=== PATIENT | female | born 1960 | race Caucasian/White ===

== ENCOUNTER 2018-09-12 12:06 | Inpatient (IN) | payer OTHER | END 2018-09-16 13:00 | disposition other institution (70) | LOC: YASAS 12:06 → Y6N 18:21 ==

== ENCOUNTER 2018-09-16 13:12 | Inpatient (IN) | payer OTHER ==
[2018-09-16] MEDS ORDERED: MAGNESIUM CITRATE 300 ML BOTTLE PO PRN (15:30)
[2018-09-16] MEDS ORDERED: LOPERAMIDE HCL 2 MG CAPSULE PO PRN (15:30)
[2018-09-16] MEDS ORDERED: MAGNESIUM HYDROX 2400MG/30ML ORAL SUSPENSION 30 ML CUP PO PRN (15:30)
[2018-09-16] MEDS ORDERED: MAG HYDROX/AL HYDROX/SIMETH 30 ML UNIT-DOSE CUP PO PRN (15:30)
[2018-09-16] MEDS ORDERED: MENTHOL/PHENOL 1 EACH UD MM PRN (15:30)
[2018-09-16] MEDS ORDERED: P-EPHED 60MG/TRIPROLIDI 2.5MG TABLET PO PRN (15:30)
--- NOTE | 2018-09-16 15:30 | HP ---
[facility] Rehab Assess/Revision - Admission History Admitted to Rehab from: [address] - Vital signs Vital Signs: Vital Signs Period Temp Pulse Resp BP Sys/Felix Pulse Ox Last 24 Hr 80 18 117/85 - Findings Detox History & Physical reviewed: Yes Concur with findings: Yes Inpatient Rehab Admission - Rehab Decision to Admit Inpatient rehab admission?: Yes - Initial Determination Are CD services needed?: Yes Free of communicable disease: Yes Not in need of hospitalization: Yes - Rehab Admission Criteria Previous failed treatment: Yes Poor recovery environment: Yes Comorbidities: Yes Lacks judgement: Yes Patient is meeting Inpatient Rehab admission criteria:: Yes
[2018-09-16] MEDS ORDERED: PNEUMOC 13-VAL CONJ-DIP CRM/PF 0.5 ML DISP.SYRIN IM ONE (15:37)
[2018-09-16] MEDS: OFLOXACIN 0.3% OPHTHALMIC SOLUTION 5 ML BOTTLE OS SCH ×2 (17:57→21:15)
[2018-09-16] MEDS: CYPROHEPTADINE HCL 4 MG TABLET PO SCH (17:58)
[2018-09-16] MEDS: THIAMINE HCL 100 MG TABLET (FP) PO SCH (21:13)
[2018-09-16] MEDS: ALBUTEROL SO4 8 GM HFA INHALER IH PRN (21:14)
[2018-09-16] MEDS: hydrOXYzine PAMOATE 50 MG CAPSULE (FP) PO PRN (21:14)
[2018-09-16] MEDS: GABAPENTIN 300 MG CAPSULE (FP) PO SCH (21:16)
[2018-09-16] MEDS ORDERED: CYPROHEPTADINE HCL 4 MG TABLET PO SCH (22:00)
[2018-09-16] MEDS ORDERED: MELATONIN 5 MG TABLETS PO PRN (22:00)
[2018-09-17] MEDS: CYPROHEPTADINE HCL 4 MG TABLET PO SCH ×3 (06:44→18:11)
[2018-09-17] MEDS: NICOTINE 21 MG/24 HOURS TOPICAL PATCH TD SCH (10:03)
[2018-09-17] MEDS: HYDROCHLOROTHIAZIDE 12.5 MG CAPSULE (FP) PO SCH (10:03)
[2018-09-17] MEDS: PRENATAL VITAMINS W/ FOLIC ACID TABLET (FP) PO SCH (10:04)
[2018-09-17] MEDS: OFLOXACIN 0.3% OPHTHALMIC SOLUTION 5 ML BOTTLE OS SCH ×4 (10:04→21:42)
[2018-09-17] MEDS: PANTOPRAZOLE 40 MG TABLET (FP) PO SCH (10:04)
[2018-09-17] MEDS: NICOTINE POLACRILEX 4 MG GUM BUC PRN (10:05)
[2018-09-17] MEDS: ALBUTEROL SO4 8 GM HFA INHALER IH PRN (11:37)
[2018-09-17] MEDS ORDERED: PT OWN MED DRAWER 7, Y5N ONE ×3 (11:37→16:49)
[2018-09-17] MEDS ORDERED: PNEUMOCOCCAL 23 VACCINE 0.5 ML VIAL IM ONE (12:00)
[2018-09-17] MEDS: CYCLOBENZAPRINE HCL 10 MG TABLET (FP) PO PRN (15:19)
--- NOTE | 2018-09-17 16:21 | CONSULT ---
[facility] Psychiatric Consult - Data Date of interview: 09/17/18 Admission source: [facility] Identifying data: Patient is a 58 year old year female, , mother of one, unemployed, domiciled, and is supported by [facility]. This is patient's first admission to rehab at [facility]. Patient admitted to for alcohol dependence. Substance Abuse History: Smoking Cessation. Smoking history: Current every day smoker. Have you smoked in the past 12 months: Yes. Aproximately how many cigarettes per day: 3. Hx Chewing Tobacco Use: No. Initiated information on smoking cessation: Yes. 'Breaking Loose' booklet given: 09/12/18. - Substances abused. Cocaine. Substance route: Inhalation. Frequency: 1-2 times per week. Amount used: 20 dollars. Age of first use: 25. Date of last use: 09/11/18. Alcohol. Substance route: Oral. Frequency: Daily. Amount used: 5 dollars of coors lite and Bacardi white. Age of first use: 23. Date of last use: 09/12/18. Marijuana/Hashish. Substance route: Smoking. Frequency: 1-2 times per week. Amount used: 2 to 3 drags. Age of first use: 18. Date of last use: 09/05/18 Medical History: asthma, Perforated nasal septum Psychiatric History: Patient denies h/o psychiatric hospitalization, outpatient care, and suicide attempt. Patient reports stable mood but is experiencing difficulty sleeping. Physical/Sexual Abuse/Trauma History: denies. Mental Status Exam - Mental Status Exam Alert and Oriented to: Time, Place, Person Cognitive Function: Good Patient Appearance: Well Groomed Mood: Euthymic Affect: Mood Congruent Patient Behavior: Cooperative Speech Pattern: Appropriate Voice Loudness: Normal Thought Process: Goal Oriented Thought Disorder: Not Present Hallucinations: Denies Suicidal Ideation: Denies Homicidal Ideation: Denies Insight/Judgement: Poor Sleep: Poorly Appetite: Fair Muscle strength/Tone: Normal Gait/Station: Normal Psychiatric Findings - Problem List ([place] 1, 2,3) (1) Alcohol dependence Current Visit: Yes Status: Acute (2) Cannabis abuse Current Visit: Yes Status: Chronic (3) Cocaine dependence, uncomplicated Current Visit: Yes Status: Chronic (4) Nicotine dependence, uncomplicated Current Visit: Yes Status: Chronic Qualifiers: Nicotine product type: cigarettes Qualified Code(s): F17.210 - Nicotine dependence, cigarettes, uncomplicated (5) Substance-induced sleep disorder Current Visit: Yes Status: Acute - Initial Treatment Plan Initial Treatment Plan: Psychoeducation provided. Rehab in progress. Will d/c Melatonin 5mg and order Melatonin 10mg HS. Benefits and side effects discussed. Verbal consent.
[2018-09-17] MEDS: hydrOXYzine PAMOATE 50 MG CAPSULE (FP) PO PRN (21:39)
[2018-09-17] MEDS: GABAPENTIN 300 MG CAPSULE (FP) PO SCH (21:39)
[2018-09-17] MEDS: THIAMINE HCL 100 MG TABLET (FP) PO SCH (21:39)
[2018-09-17] MEDS: ACETAMINOPHEN 325 MG TABLET (FP) PO PRN (21:41)
[2018-09-18] MEDS: ALBUTEROL SO4 8 GM HFA INHALER IH PRN (07:23)
[2018-09-18] MEDS: CYPROHEPTADINE HCL 4 MG TABLET PO SCH ×3 (07:23→19:08)
[2018-09-18] MEDS: PANTOPRAZOLE 40 MG TABLET (FP) PO SCH (10:05)
[2018-09-18] MEDS: NICOTINE 21 MG/24 HOURS TOPICAL PATCH TD SCH (10:05)
[2018-09-18] MEDS: PRENATAL VITAMINS W/ FOLIC ACID TABLET (FP) PO SCH (10:05)
[2018-09-18] MEDS: ALBUTEROL SO4 0.083% IH SOL 2.5 MG/3 ML VIAL.NEB. NEB PRN (10:06)
[2018-09-18] MEDS: OFLOXACIN 0.3% OPHTHALMIC SOLUTION 5 ML BOTTLE OS SCH ×4 (11:03→21:53)
[2018-09-18] MEDS: HYDROCHLOROTHIAZIDE 12.5 MG CAPSULE (FP) PO SCH (11:04)
[2018-09-18] MEDS ORDERED: BUDESONIDE/FORMETEROL FUMARATE 160/4.5 mcg INHALER IH ONE (11:10)
[2018-09-18] MEDS: BUDESONIDE/FORMETEROL FUMARATE 160/4.5 mcg INHALER IH SCH ×2 (13:51→21:54)
[2018-09-18] MEDS: TIOTROPIUM BROMIDE 2.5 MCG (SPIRIVA) RESPIMAT INHALER IH SCH (13:52)
[2018-09-18] MEDS: LIDOCAINE 5% TOPICAL PATCH TP SCH (14:26)
[2018-09-18] MEDS ORDERED: PT OWN MED DRAWER 7, Y5N ONE (16:37)
[2018-09-18] MEDS: NICOTINE POLACRILEX 4 MG GUM BUC PRN (19:09)
[2018-09-18] MEDS: guaiFENesin 200 MG/10 ML 10 ML UNIT-DOSE CUPS PO PRN (19:11)
[2018-09-18] MEDS: hydrOXYzine PAMOATE 50 MG CAPSULE (FP) PO PRN (21:50)
[2018-09-18] MEDS: CYCLOBENZAPRINE HCL 10 MG TABLET (FP) PO PRN (21:50)
[2018-09-18] MEDS: THIAMINE HCL 100 MG TABLET (FP) PO SCH (21:50)
[2018-09-18] MEDS: GABAPENTIN 300 MG CAPSULE (FP) PO SCH (21:50)
[2018-09-18] MEDS: LIDOCAINE PATCH REMOVAL MC SCH (21:51)
[2018-09-18] MEDS: ACETAMINOPHEN 325 MG TABLET (FP) PO PRN (22:54)
[2018-09-19] MEDS: CYPROHEPTADINE HCL 4 MG TABLET PO SCH ×3 (06:44→16:51)
[2018-09-19] MEDS ORDERED: PT OWN MED DRAWER 7, Y5N ONE ×3 (09:22→19:44)
[2018-09-19] MEDS: ALBUTEROL SO4 0.083% IH SOL 2.5 MG/3 ML VIAL.NEB. NEB PRN (10:15)
[2018-09-19] MEDS: OFLOXACIN 0.3% OPHTHALMIC SOLUTION 5 ML BOTTLE OS SCH ×4 (10:16→21:36)
[2018-09-19] MEDS: PANTOPRAZOLE 40 MG TABLET (FP) PO SCH (10:17)
[2018-09-19] MEDS: LIDOCAINE 5% TOPICAL PATCH TP SCH (10:17)
[2018-09-19] MEDS: HYDROCHLOROTHIAZIDE 12.5 MG CAPSULE (FP) PO SCH (10:17)
[2018-09-19] MEDS: NICOTINE 21 MG/24 HOURS TOPICAL PATCH TD SCH (10:17)
[2018-09-19] MEDS: PRENATAL VITAMINS W/ FOLIC ACID TABLET (FP) PO SCH (10:17)
[2018-09-19] MEDS: guaiFENesin 200 MG/10 ML 10 ML UNIT-DOSE CUPS PO PRN (10:19)
[2018-09-19] MEDS: TIOTROPIUM BROMIDE 2.5 MCG (SPIRIVA) RESPIMAT INHALER IH SCH (10:20)
[2018-09-19] MEDS: BUDESONIDE/FORMETEROL FUMARATE 160/4.5 mcg INHALER IH SCH ×2 (10:20→21:35)
--- NOTE | 2018-09-19 14:25 | PN ---
[facility] Progress Note Note: PATIENT SEEN FOR C/O MOUTH/TONGUE PAIN. PATIENT STATES EATING SALTY/SOUR FOODS BOTHERS HER MOUTH. STATES SHE ALSO HAS DISCOLORATION TO TONGUE X ONE YEAR AND WAS SEEN BY DENTIST ONE MONTH AGO. PATIENT STATES DENTIST DID NOT RECOMMEND ANY TREATMENT. Vital Signs (72 hours) 09/17/18 09/17/18 09/17/18 00:30 03:30 07:22 Temperature 97.9 F Pulse Rate 81 Respiratory 16 18 18 Rate Blood Pressure 104/70 09/17/18 09/17/18 09/18/18 10:04 15:19 00:30 Temperature Pulse Rate 82 81 Respiratory 17 18 18 Rate Blood Pressure 105/70 119/77 09/18/18 09/18/18 09/19/18 07:20 10:40 00:30 Temperature 97.1 F L Pulse Rate 87 85 Respiratory 16 18 Rate Blood Pressure 105/70 100/72 09/19/18 09/19/18 09/19/18 03:30 07:11 09:11 Temperature 97.7 F Pulse Rate 83 90 Respiratory 16 18 18 Rate Blood Pressure 120/80 113/72 Ambulatory Orders Albuterol Sulfate Inhaler - [Ventolin HFA Inhaler -] 2 inhaler PO Q4HWA Cyclobenzaprine HCl 10 mg PO TID PRN 09/12/18 Cyproheptadine [Periactin -] 1 tab PO TID 09/12/18 Diphenhydramine HCl 50 mg PO HS PRN 09/12/18 Gabapentin 300 mg PO HS 09/12/18 Hydrochlorothiazide 12.5 mg PO DAILY 09/12/18 Hydroxyzine HCl 25 mg PO HS 09/12/18 Ofloxacin 0.3% Ophth Soln 1 drop OS QID 09/12/18 Omeprazole 40 mg PO DAILY 09/12/18 Pantoprazole Sodium [Protonix -] 40 mg PO DAILY 09/16/18 traZODone HCL [Trazodone HCl] 50 mg PO HS 09/16/18 PE: ALERT AND ORIENTED X 3 SKIN WARM AND DRY +PERRLA EOMS INTACT BL MOUTH MUCOSA PINK AND MOIST, TONGUE MIDLINE WITH PINK/LIGHT PURPLE DISCOLORATION ON SIDE OF TONGUE, NO ULCERATIONS OR LESIONS NOTED NECK SUPPLE, NO JVD, NO LYMPHADENOPATHY CAR S1S2 RESP CTA BL A/P: ORAL DISCOMFORT ORAL GEL ORDERED PATIENT STRONGLY ADVISED TO FOLLOW UP WITH PCP FOR REFERRAL TO ENT/ORAL SPECIALIST FOR EVALUATION AND TREATMENT OF DISCOLORATION MONITOR CLINICALLY
[2018-09-19] MEDS: BENZOCAINE 20 % GEL TUBE MM PRN (16:53)
[2018-09-19] MEDS: ACETAMINOPHEN 325 MG TABLET (FP) PO PRN (18:55)
[2018-09-19] MEDS: LIDOCAINE PATCH REMOVAL MC SCH (21:34)
[2018-09-19] MEDS: THIAMINE HCL 100 MG TABLET (FP) PO SCH (21:36)
[2018-09-19] MEDS: MELATONIN 5 MG TABLETS PO PRN (21:36)
[2018-09-19] MEDS: GABAPENTIN 300 MG CAPSULE (FP) PO SCH (21:36)
[2018-09-20] MEDS: ACETAMINOPHEN 325 MG TABLET (FP) PO PRN (04:51)
[2018-09-20] MEDS ORDERED: PT OWN MED DRAWER 7, Y5N ONE ×2 (05:59→09:15)
[2018-09-20] MEDS: ALBUTEROL SO4 8 GM HFA INHALER IH PRN (06:04)
[2018-09-20] MEDS: CYPROHEPTADINE HCL 4 MG TABLET PO SCH ×3 (06:04→16:55)
[2018-09-20] MEDS: LIDOCAINE 5% TOPICAL PATCH TP SCH (10:39)
[2018-09-20] MEDS: NICOTINE 21 MG/24 HOURS TOPICAL PATCH TD SCH (10:39)
[2018-09-20] MEDS: TIOTROPIUM BROMIDE 2.5 MCG (SPIRIVA) RESPIMAT INHALER IH SCH (10:40)
[2018-09-20] MEDS: BENZOCAINE 20 % GEL TUBE MM PRN (10:40)
[2018-09-20] MEDS: BUDESONIDE/FORMETEROL FUMARATE 160/4.5 mcg INHALER IH SCH ×2 (10:40→21:40)
[2018-09-20] MEDS: PANTOPRAZOLE 40 MG TABLET (FP) PO SCH (10:41)
[2018-09-20] MEDS: PRENATAL VITAMINS W/ FOLIC ACID TABLET (FP) PO SCH (10:41)
[2018-09-20] MEDS: HYDROCHLOROTHIAZIDE 12.5 MG CAPSULE (FP) PO SCH (10:41)
[2018-09-20] MEDS: OFLOXACIN 0.3% OPHTHALMIC SOLUTION 5 ML BOTTLE OS SCH ×4 (10:41→21:39)
[2018-09-20] MEDS: CYCLOBENZAPRINE HCL 10 MG TABLET (FP) PO PRN ×2 (10:42→21:38)
[2018-09-20] MEDS: IBUPROFEN 400 MG TABLET (FP) PO PRN (13:00)
[2018-09-20] MEDS: THIAMINE HCL 100 MG TABLET (FP) PO SCH (21:38)
[2018-09-20] MEDS: GABAPENTIN 300 MG CAPSULE (FP) PO SCH (21:38)
[2018-09-20] MEDS: LIDOCAINE PATCH REMOVAL MC SCH (21:39)
[2018-09-20] MEDS: guaiFENesin 200 MG/10 ML 10 ML UNIT-DOSE CUPS PO PRN (21:41)
[2018-09-21] MEDS: IBUPROFEN 400 MG TABLET (FP) PO PRN (06:54)
[2018-09-21] MEDS: CYPROHEPTADINE HCL 4 MG TABLET PO SCH ×3 (06:54→16:55)
[2018-09-21] MEDS: NICOTINE 21 MG/24 HOURS TOPICAL PATCH TD SCH (10:13)
[2018-09-21] MEDS: OFLOXACIN 0.3% OPHTHALMIC SOLUTION 5 ML BOTTLE OS SCH ×4 (10:13→21:45)
[2018-09-21] MEDS: LIDOCAINE 5% TOPICAL PATCH TP SCH (10:13)
[2018-09-21] MEDS: HYDROCHLOROTHIAZIDE 12.5 MG CAPSULE (FP) PO SCH (10:14)
[2018-09-21] MEDS: PANTOPRAZOLE 40 MG TABLET (FP) PO SCH (10:14)
[2018-09-21] MEDS: BUDESONIDE/FORMETEROL FUMARATE 160/4.5 mcg INHALER IH SCH ×2 (10:14→21:45)
[2018-09-21] MEDS: PRENATAL VITAMINS W/ FOLIC ACID TABLET (FP) PO SCH (10:14)
[2018-09-21] MEDS: TIOTROPIUM BROMIDE 2.5 MCG (SPIRIVA) RESPIMAT INHALER IH SCH (10:15)
[2018-09-21] MEDS: CYCLOBENZAPRINE HCL 10 MG TABLET (FP) PO PRN ×2 (10:15→21:43)
[2018-09-21] MEDS: BENZOCAINE 20 % GEL TUBE MM PRN (10:16)
[2018-09-21] MEDS: ALBUTEROL SO4 0.083% IH SOL 2.5 MG/3 ML VIAL.NEB. NEB PRN (10:19)
[2018-09-21] MEDS ORDERED: PT OWN MED DRAWER 7, Y5N ONE ×2 (19:10)
[2018-09-21] MEDS: ACETAMINOPHEN 325 MG TABLET (FP) PO PRN (19:11)
[2018-09-21] MEDS: GABAPENTIN 300 MG CAPSULE (FP) PO SCH (21:43)
[2018-09-21] MEDS: THIAMINE HCL 100 MG TABLET (FP) PO SCH (21:43)
[2018-09-21] MEDS: hydrOXYzine PAMOATE 50 MG CAPSULE (FP) PO PRN (21:43)
[2018-09-21] MEDS: guaiFENesin 200 MG/10 ML 10 ML UNIT-DOSE CUPS PO PRN (21:44)
[2018-09-21] MEDS: LIDOCAINE PATCH REMOVAL MC SCH (21:46)
[2018-09-22] MEDS: CYPROHEPTADINE HCL 4 MG TABLET PO SCH ×3 (06:48→16:40)
[2018-09-22] MEDS ORDERED: PT OWN MED DRAWER 7, Y5N ONE ×4 (08:52→21:32)
[2018-09-22] MEDS: PANTOPRAZOLE 40 MG TABLET (FP) PO SCH (09:48)
[2018-09-22] MEDS: BUDESONIDE/FORMETEROL FUMARATE 160/4.5 mcg INHALER IH SCH ×2 (09:48→21:29)
[2018-09-22] MEDS: LIDOCAINE 5% TOPICAL PATCH TP SCH (09:48)
[2018-09-22] MEDS: TIOTROPIUM BROMIDE 2.5 MCG (SPIRIVA) RESPIMAT INHALER IH SCH (09:49)
[2018-09-22] MEDS: PRENATAL VITAMINS W/ FOLIC ACID TABLET (FP) PO SCH (09:50)
[2018-09-22] MEDS: NICOTINE 21 MG/24 HOURS TOPICAL PATCH TD SCH (09:50)
[2018-09-22] MEDS: HYDROCHLOROTHIAZIDE 12.5 MG CAPSULE (FP) PO SCH (09:50)
[2018-09-22] MEDS: OFLOXACIN 0.3% OPHTHALMIC SOLUTION 5 ML BOTTLE OS SCH ×4 (09:50→21:29)
[2018-09-22] MEDS: BENZOCAINE 20 % GEL TUBE MM PRN (09:52)
[2018-09-22] MEDS: CYCLOBENZAPRINE HCL 10 MG TABLET (FP) PO PRN ×2 (09:52→21:27)
[2018-09-22] MEDS ORDERED: ALBUTEROL SO4 0.083% IH SOL 2.5 MG/3 ML VIAL.NEB. NEB PRN (12:02)
[2018-09-22] MEDS: ACETAMINOPHEN 325 MG TABLET (FP) PO PRN (14:06)
[2018-09-22] MEDS: GABAPENTIN 300 MG CAPSULE (FP) PO SCH (21:27)
[2018-09-22] MEDS: THIAMINE HCL 100 MG TABLET (FP) PO SCH (21:27)
[2018-09-22] MEDS: hydrOXYzine PAMOATE 50 MG CAPSULE (FP) PO PRN (21:27)
[2018-09-22] MEDS: guaiFENesin 200 MG/10 ML 10 ML UNIT-DOSE CUPS PO PRN (21:28)
[2018-09-22] MEDS: LIDOCAINE PATCH REMOVAL MC SCH (21:55)
[2018-09-23] MEDS: ACETAMINOPHEN 325 MG TABLET (FP) PO PRN (06:50)
[2018-09-23] MEDS: CYPROHEPTADINE HCL 4 MG TABLET PO SCH ×3 (06:50→17:14)
[2018-09-23] MEDS: CYCLOBENZAPRINE HCL 10 MG TABLET (FP) PO PRN ×2 (09:46→21:27)
[2018-09-23] MEDS: PRENATAL VITAMINS W/ FOLIC ACID TABLET (FP) PO SCH (09:47)
[2018-09-23] MEDS: PANTOPRAZOLE 40 MG TABLET (FP) PO SCH (09:47)
[2018-09-23] MEDS: OFLOXACIN 0.3% OPHTHALMIC SOLUTION 5 ML BOTTLE OS SCH (09:48)
[2018-09-23] MEDS: NICOTINE 21 MG/24 HOURS TOPICAL PATCH TD SCH (09:48)
[2018-09-23] MEDS: TIOTROPIUM BROMIDE 2.5 MCG (SPIRIVA) RESPIMAT INHALER IH SCH (09:51)
[2018-09-23] MEDS: BUDESONIDE/FORMETEROL FUMARATE 160/4.5 mcg INHALER IH SCH ×2 (09:51→22:39)
[2018-09-23] MEDS: HYDROCHLOROTHIAZIDE 12.5 MG CAPSULE (FP) PO SCH (10:06)
[2018-09-23] MEDS: LIDOCAINE 5% TOPICAL PATCH TP SCH (10:07)
[2018-09-23] MEDS: BENZOCAINE 20 % GEL TUBE MM PRN (10:07)
[2018-09-23] MEDS: MELATONIN 5 MG TABLETS PO PRN (21:27)
[2018-09-23] MEDS: THIAMINE HCL 100 MG TABLET (FP) PO SCH (21:27)
[2018-09-23] MEDS: GABAPENTIN 300 MG CAPSULE (FP) PO SCH (21:27)
[2018-09-23] MEDS: guaiFENesin 200 MG/10 ML 10 ML UNIT-DOSE CUPS PO PRN (21:27)
[2018-09-23] MEDS: LIDOCAINE PATCH REMOVAL MC SCH (21:29)
[2018-09-24] MEDS: ACETAMINOPHEN 325 MG TABLET (FP) PO PRN (06:17)
[2018-09-24] MEDS: CYPROHEPTADINE HCL 4 MG TABLET PO SCH ×3 (06:17→16:40)
[2018-09-24] MEDS ORDERED: COLLOIDAL OATMEAL 1 BAR EACH TP PRN (07:58)
[2018-09-24] MEDS: HYDROCHLOROTHIAZIDE 12.5 MG CAPSULE (FP) PO SCH (10:26)
[2018-09-24] MEDS: LIDOCAINE 5% TOPICAL PATCH TP SCH (10:26)
[2018-09-24] MEDS: PRENATAL VITAMINS W/ FOLIC ACID TABLET (FP) PO SCH (10:27)
[2018-09-24] MEDS: NICOTINE 21 MG/24 HOURS TOPICAL PATCH TD SCH (10:27)
[2018-09-24] MEDS: PANTOPRAZOLE 40 MG TABLET (FP) PO SCH (10:27)
[2018-09-24] MEDS: BUDESONIDE/FORMETEROL FUMARATE 160/4.5 mcg INHALER IH SCH ×2 (10:28→21:25)
[2018-09-24] MEDS: TIOTROPIUM BROMIDE 2.5 MCG (SPIRIVA) RESPIMAT INHALER IH SCH (10:28)
[2018-09-24] MEDS: BENZOCAINE 20 % GEL TUBE MM PRN (10:29)
[2018-09-24] MEDS: CYCLOBENZAPRINE HCL 10 MG TABLET (FP) PO PRN ×2 (10:30→21:24)
[2018-09-24] MEDS ORDERED: PT OWN MED DRAWER 7, Y5N ONE (16:36)
[2018-09-24] MEDS: GABAPENTIN 300 MG CAPSULE (FP) PO SCH (21:24)
[2018-09-24] MEDS: guaiFENesin 200 MG/10 ML 10 ML UNIT-DOSE CUPS PO PRN (21:24)
[2018-09-24] MEDS: hydrOXYzine PAMOATE 50 MG CAPSULE (FP) PO PRN (21:24)
[2018-09-24] MEDS: MELATONIN 5 MG TABLETS PO PRN (21:24)
[2018-09-24] MEDS: LIDOCAINE PATCH REMOVAL MC SCH (21:26)
[2018-09-24] MEDS: THIAMINE HCL 100 MG TABLET (FP) PO SCH (21:28)
[2018-09-25] MEDS: ACETAMINOPHEN 325 MG TABLET (FP) PO PRN (06:11)
[2018-09-25] MEDS: CYPROHEPTADINE HCL 4 MG TABLET PO SCH ×3 (06:11→16:50)
[2018-09-25] MEDS: CYCLOBENZAPRINE HCL 10 MG TABLET (FP) PO PRN ×3 (06:13→21:12)
[2018-09-25] MEDS ORDERED: PT OWN MED DRAWER 7, Y5N ONE (08:48)
[2018-09-25] MEDS: LIDOCAINE 5% TOPICAL PATCH TP SCH (10:14)
[2018-09-25] MEDS: NICOTINE 21 MG/24 HOURS TOPICAL PATCH TD SCH (10:14)
[2018-09-25] MEDS: BUDESONIDE/FORMETEROL FUMARATE 160/4.5 mcg INHALER IH SCH ×2 (10:15→21:14)
[2018-09-25] MEDS: TIOTROPIUM BROMIDE 2.5 MCG (SPIRIVA) RESPIMAT INHALER IH SCH (10:15)
[2018-09-25] MEDS: PRENATAL VITAMINS W/ FOLIC ACID TABLET (FP) PO SCH (10:15)
[2018-09-25] MEDS: PANTOPRAZOLE 40 MG TABLET (FP) PO SCH (10:15)
[2018-09-25] MEDS: HYDROCHLOROTHIAZIDE 12.5 MG CAPSULE (FP) PO SCH (10:15)
[2018-09-25] MEDS: ALBUTEROL SO4 8 GM HFA INHALER IH PRN (10:16)
[2018-09-25] MEDS: IBUPROFEN 400 MG TABLET (FP) PO PRN ×2 (13:53→22:09)
[2018-09-25] MEDS: guaiFENesin 200 MG/10 ML 10 ML UNIT-DOSE CUPS PO PRN (21:12)
[2018-09-25] MEDS: THIAMINE HCL 100 MG TABLET (FP) PO SCH (21:12)
[2018-09-25] MEDS: GABAPENTIN 300 MG CAPSULE (FP) PO SCH (21:13)
[2018-09-25] MEDS: LIDOCAINE PATCH REMOVAL MC SCH (21:14)
[2018-09-25] MEDS: METHYL SALICYLATE/MENTHOL OINT 30 GM TUBE TP SCH (21:14)
[2018-09-26] MEDS: CYCLOBENZAPRINE HCL 10 MG TABLET (FP) PO PRN (06:11)
[2018-09-26] MEDS: CYPROHEPTADINE HCL 4 MG TABLET PO SCH ×3 (06:11→17:27)
[2018-09-26] MEDS: ACETAMINOPHEN 325 MG TABLET (FP) PO PRN (06:12)
[2018-09-26] MEDS ORDERED: PT OWN MED DRAWER 7, Y5N ONE ×5 (08:49→19:28)
[2018-09-26] MEDS: HYDROCHLOROTHIAZIDE 12.5 MG CAPSULE (FP) PO SCH (10:15)
[2018-09-26] MEDS: LIDOCAINE 5% TOPICAL PATCH TP SCH (10:15)
[2018-09-26] MEDS: NICOTINE 21 MG/24 HOURS TOPICAL PATCH TD SCH (10:15)
[2018-09-26] MEDS: BUDESONIDE/FORMETEROL FUMARATE 160/4.5 mcg INHALER IH SCH ×2 (10:15→21:02)
[2018-09-26] MEDS: TIOTROPIUM BROMIDE 2.5 MCG (SPIRIVA) RESPIMAT INHALER IH SCH (10:15)
[2018-09-26] MEDS: PANTOPRAZOLE 40 MG TABLET (FP) PO SCH (10:16)
[2018-09-26] MEDS: PRENATAL VITAMINS W/ FOLIC ACID TABLET (FP) PO SCH (10:16)
[2018-09-26] MEDS: IBUPROFEN 400 MG TABLET (FP) PO PRN ×2 (14:06→21:04)
[2018-09-26] MEDS: GABAPENTIN 300 MG CAPSULE (FP) PO SCH (21:02)
[2018-09-26] MEDS: THIAMINE HCL 100 MG TABLET (FP) PO SCH (21:02)
[2018-09-26] MEDS: hydrOXYzine PAMOATE 50 MG CAPSULE (FP) PO PRN (21:04)
[2018-09-26] MEDS: guaiFENesin 200 MG/10 ML 10 ML UNIT-DOSE CUPS PO PRN (21:04)
[2018-09-26] MEDS: METHYL SALICYLATE/MENTHOL OINT 30 GM TUBE TP SCH (21:05)
[2018-09-26] MEDS: LIDOCAINE PATCH REMOVAL MC SCH (22:10)
[2018-09-27] MEDS: CYCLOBENZAPRINE HCL 10 MG TABLET (FP) PO PRN ×3 (06:16→21:27)
[2018-09-27] MEDS: CYPROHEPTADINE HCL 4 MG TABLET PO SCH ×3 (06:16→16:32)
[2018-09-27] MEDS: IBUPROFEN 400 MG TABLET (FP) PO PRN (06:16)
[2018-09-27] MEDS: HYDROCHLOROTHIAZIDE 12.5 MG CAPSULE (FP) PO SCH (09:58)
[2018-09-27] MEDS: NICOTINE 21 MG/24 HOURS TOPICAL PATCH TD SCH (09:59)
[2018-09-27] MEDS: LIDOCAINE 5% TOPICAL PATCH TP SCH (09:59)
[2018-09-27] MEDS: PRENATAL VITAMINS W/ FOLIC ACID TABLET (FP) PO SCH (10:00)
[2018-09-27] MEDS: BUDESONIDE/FORMETEROL FUMARATE 160/4.5 mcg INHALER IH SCH ×2 (10:00→21:30)
[2018-09-27] MEDS: PANTOPRAZOLE 40 MG TABLET (FP) PO SCH (10:00)
[2018-09-27] MEDS: BENZOCAINE 20 % GEL TUBE MM PRN (10:02)
[2018-09-27] MEDS: TIOTROPIUM BROMIDE 2.5 MCG (SPIRIVA) RESPIMAT INHALER IH SCH (10:02)
[2018-09-27] MEDS: ACETAMINOPHEN 325 MG TABLET (FP) PO PRN ×2 (10:04→21:27)
[2018-09-27] MEDS: THIAMINE HCL 100 MG TABLET (FP) PO SCH (21:27)
[2018-09-27] MEDS: METHYL SALICYLATE/MENTHOL OINT 30 GM TUBE TP SCH (21:27)
[2018-09-27] MEDS: GABAPENTIN 300 MG CAPSULE (FP) PO SCH (21:27)
[2018-09-27] MEDS: LIDOCAINE PATCH REMOVAL MC SCH (21:27)
[2018-09-27] MEDS: guaiFENesin 200 MG/10 ML 10 ML UNIT-DOSE CUPS PO PRN (21:28)
[2018-09-27] MEDS ORDERED: PT OWN MED DRAWER 7, Y5N ONE (21:30)
[2018-09-28] MEDS: CYPROHEPTADINE HCL 4 MG TABLET PO SCH ×3 (06:27→16:32)
[2018-09-28] MEDS: CYCLOBENZAPRINE HCL 10 MG TABLET (FP) PO PRN ×2 (06:27→21:06)
[2018-09-28] MEDS: IBUPROFEN 400 MG TABLET (FP) PO PRN (06:27)
[2018-09-28] MEDS ORDERED: PT OWN MED DRAWER 7, Y5N ONE ×2 (08:35→09:53)
[2018-09-28] MEDS: HYDROCHLOROTHIAZIDE 12.5 MG CAPSULE (FP) PO SCH (09:51)
[2018-09-28] MEDS: NICOTINE 21 MG/24 HOURS TOPICAL PATCH TD SCH (09:51)
[2018-09-28] MEDS: PANTOPRAZOLE 40 MG TABLET (FP) PO SCH (09:51)
[2018-09-28] MEDS: PRENATAL VITAMINS W/ FOLIC ACID TABLET (FP) PO SCH (09:51)
[2018-09-28] MEDS: LIDOCAINE 5% TOPICAL PATCH TP SCH (09:51)
[2018-09-28] MEDS: TIOTROPIUM BROMIDE 2.5 MCG (SPIRIVA) RESPIMAT INHALER IH SCH (09:51)
[2018-09-28] MEDS: BUDESONIDE/FORMETEROL FUMARATE 160/4.5 mcg INHALER IH SCH ×2 (09:51→21:09)
[2018-09-28] MEDS: ACETAMINOPHEN 325 MG TABLET (FP) PO PRN ×2 (09:53→15:43)
[2018-09-28] MEDS: GABAPENTIN 300 MG CAPSULE (FP) PO SCH (21:06)
[2018-09-28] MEDS: MELATONIN 5 MG TABLETS PO PRN (21:06)
[2018-09-28] MEDS: guaiFENesin 200 MG/10 ML 10 ML UNIT-DOSE CUPS PO PRN (21:06)
[2018-09-28] MEDS: THIAMINE HCL 100 MG TABLET (FP) PO SCH (21:06)
[2018-09-28] MEDS: LIDOCAINE PATCH REMOVAL MC SCH (21:08)
[2018-09-28] MEDS: METHYL SALICYLATE/MENTHOL OINT 30 GM TUBE TP SCH (21:08)
[2018-09-28] MEDS: hydrOXYzine PAMOATE 50 MG CAPSULE (FP) PO PRN (21:08)
[2018-09-29] MEDS: IBUPROFEN 400 MG TABLET (FP) PO PRN (06:09)
[2018-09-29] MEDS: CYCLOBENZAPRINE HCL 10 MG TABLET (FP) PO PRN ×2 (06:09→21:20)
[2018-09-29] MEDS: CYPROHEPTADINE HCL 4 MG TABLET PO SCH ×3 (06:09→17:39)
[2018-09-29] MEDS: BUDESONIDE/FORMETEROL FUMARATE 160/4.5 mcg INHALER IH SCH ×2 (10:19→21:22)
[2018-09-29] MEDS: HYDROCHLOROTHIAZIDE 12.5 MG CAPSULE (FP) PO SCH (10:19)
[2018-09-29] MEDS: PRENATAL VITAMINS W/ FOLIC ACID TABLET (FP) PO SCH (10:19)
[2018-09-29] MEDS: PANTOPRAZOLE 40 MG TABLET (FP) PO SCH (10:19)
[2018-09-29] MEDS: NICOTINE 21 MG/24 HOURS TOPICAL PATCH TD SCH (10:20)
[2018-09-29] MEDS: TIOTROPIUM BROMIDE 2.5 MCG (SPIRIVA) RESPIMAT INHALER IH SCH (10:20)
[2018-09-29] MEDS: LIDOCAINE 5% TOPICAL PATCH TP SCH (10:20)
[2018-09-29] MEDS: BENZOCAINE 20 % GEL TUBE MM PRN (10:22)
[2018-09-29] MEDS: ACETAMINOPHEN 325 MG TABLET (FP) PO PRN ×2 (10:24→17:34)
--- NOTE | 2018-09-29 13:30 | PN ---
[facility] Progress Note Note: Patient seen for complaint of left shoulder pain x 2 days. Patient denies any recent injuries and/or falls. Patient states current treatment with Lidocaine ineffective and movement of left arm limited due to pain. Vital Signs (72 hours) 09/27/18 09/27/18 09/27/18 00:30 03:30 07:05 Temperature 97.1 F L Pulse Rate 85 Respiratory 16 16 18 Rate Blood Pressure 99/67 09/27/18 09/28/18 09/28/18 09:00 00:30 03:30 Temperature Pulse Rate 92 H Respiratory 18 16 16 Rate Blood Pressure 107/70 09/28/18 09/28/18 09/29/18 07:26 09:15 00:30 Temperature 98.4 F Pulse Rate 96 H 97 H Respiratory 18 16 16 Rate Blood Pressure 121/66 105/69 09/29/18 09/29/18 09/29/18 03:30 06:03 10:00 Temperature 97.9 F Pulse Rate 88 91 H Respiratory 18 16 Rate Blood Pressure 109/75 111/70 pe: alert and oriented x 3, thin body frame, 110 pounds skin warm and dry +perrla, eoms intact bl neck supple, no jvd ext amb ad grace, no edeme of feet/legs left shoulder painful to touch, mild swelling present, rom guarded a/p: left shoulder pain will continue current pain relief measures xray of left shoulder ordered monitor clinically
[2018-09-29] MEDS: GABAPENTIN 300 MG CAPSULE (FP) PO SCH (21:20)
[2018-09-29] MEDS: THIAMINE HCL 100 MG TABLET (FP) PO SCH (21:20)
[2018-09-29] MEDS: hydrOXYzine PAMOATE 50 MG CAPSULE (FP) PO PRN (21:20)
[2018-09-29] MEDS: guaiFENesin 200 MG/10 ML 10 ML UNIT-DOSE CUPS PO PRN (21:20)
[2018-09-29] MEDS: LIDOCAINE PATCH REMOVAL MC SCH (21:22)
[2018-09-29] MEDS: METHYL SALICYLATE/MENTHOL OINT 30 GM TUBE TP SCH (21:22)
[2018-09-30] MEDS: ACETAMINOPHEN 325 MG TABLET (FP) PO PRN (03:56)
[2018-09-30] MEDS: CYPROHEPTADINE HCL 4 MG TABLET PO SCH ×3 (06:21→16:40)
[2018-09-30] MEDS: IBUPROFEN 400 MG TABLET (FP) PO PRN (06:24)
[2018-09-30] MEDS: CYCLOBENZAPRINE HCL 10 MG TABLET (FP) PO PRN ×3 (06:24→21:21)
--- NOTE | 2018-09-30 09:02 | PN ---
S Progress Note Note: Pt here for medication review. Pt scheduled for discharge tomorrow. Says she does not need any medications and will f/u with PCP: Dr. Graham in [place]. HAs medications at home.
[2018-09-30] MEDS: HYDROCHLOROTHIAZIDE 12.5 MG CAPSULE (FP) PO SCH (09:11)
[2018-09-30] MEDS: LIDOCAINE 5% TOPICAL PATCH TP SCH (09:11)
[2018-09-30] MEDS: NICOTINE 21 MG/24 HOURS TOPICAL PATCH TD SCH (09:12)
[2018-09-30] MEDS: PRENATAL VITAMINS W/ FOLIC ACID TABLET (FP) PO SCH (09:12)
[2018-09-30] MEDS: PANTOPRAZOLE 40 MG TABLET (FP) PO SCH (09:12)
[2018-09-30] MEDS: TIOTROPIUM BROMIDE 2.5 MCG (SPIRIVA) RESPIMAT INHALER IH SCH (09:13)
[2018-09-30] MEDS: BUDESONIDE/FORMETEROL FUMARATE 160/4.5 mcg INHALER IH SCH ×2 (09:13→21:23)
[2018-09-30] MEDS ORDERED: PT OWN MED DRAWER 7, Y5N ONE ×2 (09:56→14:56)
[2018-09-30] MEDS: BENZOCAINE 20 % GEL TUBE MM PRN (14:53)
[2018-09-30] MEDS: GABAPENTIN 300 MG CAPSULE (FP) PO SCH (21:21)
[2018-09-30] MEDS: THIAMINE HCL 100 MG TABLET (FP) PO SCH (21:21)
[2018-09-30] MEDS: hydrOXYzine PAMOATE 50 MG CAPSULE (FP) PO PRN (21:21)
[2018-09-30] MEDS: guaiFENesin 200 MG/10 ML 10 ML UNIT-DOSE CUPS PO PRN (21:21)
[2018-09-30] MEDS: MELATONIN 5 MG TABLETS PO PRN (21:22)
[2018-09-30] MEDS: LIDOCAINE PATCH REMOVAL MC SCH (21:23)
[2018-09-30] MEDS: METHYL SALICYLATE/MENTHOL OINT 30 GM TUBE TP SCH (21:23)
[2018-10-01] MEDS: ACETAMINOPHEN 325 MG TABLET (FP) PO PRN (06:38)
[2018-10-01] MEDS: CYCLOBENZAPRINE HCL 10 MG TABLET (FP) PO PRN (06:39)
[2018-10-01] MEDS: CYPROHEPTADINE HCL 4 MG TABLET PO SCH ×2 (06:39→10:24)
[2018-10-01 07:34] VITALS: BP 120/82; PULSE 88; TEMP 98.2
[2018-10-01] MEDS ORDERED: PT OWN MED DRAWER 7, Y5N ONE (08:47)
[2018-10-01] MEDS: PRENATAL VITAMINS W/ FOLIC ACID TABLET (FP) PO SCH (09:31)
[2018-10-01] MEDS: HYDROCHLOROTHIAZIDE 12.5 MG CAPSULE (FP) PO SCH (09:31)
[2018-10-01] MEDS: PANTOPRAZOLE 40 MG TABLET (FP) PO SCH (09:31)
[2018-10-01] MEDS: NICOTINE 21 MG/24 HOURS TOPICAL PATCH TD SCH (09:32)
[2018-10-01] MEDS: BUDESONIDE/FORMETEROL FUMARATE 160/4.5 mcg INHALER IH SCH (09:33)
[2018-10-01] MEDS: TIOTROPIUM BROMIDE 2.5 MCG (SPIRIVA) RESPIMAT INHALER IH SCH (09:33)
[2018-10-01] MEDS: LIDOCAINE 5% TOPICAL PATCH TP SCH (09:34)
[2018-10-01] MEDS: BENZOCAINE 20 % GEL TUBE MM PRN (09:34)
== END 2018-10-01 10:42 | disposition home or self-care (01) | DRG 772 ==
LOC: YASAS 13:12 → Y3E 13:13
PROVIDERS: ADMIT Neuromusculoskeletal Medicine & OMM; ATTEND Neuromusculoskeletal Medicine & OMM
PROC: HZ42ZZZ Group Counseling for Substance Abuse Treatment, Cognitive-Behavioral (ICD-10-PCS; principal; 2018-09-16)
DX: F10.20 Alcohol dependence, uncomplicated (principal); F14.20 Cocaine dependence, uncomplicated; F12.20 Cannabis dependence, uncomplicated; F17.210 Nicotine dependence, cigarettes, uncomplicated; F19.282 Other psychoactive substance dependence with psychoactive substance-induced sleep disorder; M25.512 Pain in left shoulder; K13.79 Other lesions of oral mucosa
CPT/HCPCS: 73030-TC-LT-FY; 90732; 94640; G0009

== ENCOUNTER 2019-10-20 14:44 | Inpatient (IN) | payer OTHER ==
--- NOTE | 2019-10-20 15:15 | BHS.RME ---
Substance Use & Tx History - Substance Use History Alcohol Substance amount: one pint Rum, 6 pack x 12 ounces Frequency of use: Daily Substance route: Oral Date of Last Use: 10/20/19 Cocaine- Powder Substance amount: $40 Frequency of use: Less than 3 times per week Substance route: Inhalation (ex: sniffing or snorting) Date of Last Use: 10/19/19 Marijuana/Hashish Substance amount: few drags Frequency of use: Less than 3 times per week Substance route: Smoking Date of Last Use: 10/19/19 - Last Treatment Date of last treatment: 09/16 to 10/01 Detox and rehab Physical/Psych/Mental Status - Behavior General Behavior: Increased activity (restlessness, agitation) Eye Contact: Normal - Cooperativeness Cooperativeness: Cooperative - Thinking Thought Processes: Tight Thought content: Future oriented - Physical Health Problems Is patient presently having any pain?: Yes (right lateral wrist) Does patient presently have any injuries (include location): No Does patient currently have a fever: No CIWA Nausea/Vomitin-Mild Nausea/No Vomiting Muscle Tremors: 3 Anxiety: 4-Mod. Anxious/Guarded Agitation: 0-Normal Activity Paroxysmal Sweats: No Perspiration Orientation: 0-Oriented Tacttile Disturbances: 0-None Auditory Disturbances: 0-None Visual Disturbances: 0-None Headache: 0-None Present CIWA-Ar Total Score: 8
[2019-10-20 16:04] VITALS: BMI 15.6
--- NOTE | 2019-10-20 17:00 | HP ---
CIWA Score Nausea/Vomitin Muscle Tremors: 4-Moderate,w/Arms Extend Anxiety: 4-Mod. Anxious/Guarded Agitation: 1-Slight > Activity Paroxysmal Sweats: 2 Orientation: 0-Oriented Tacttile Disturbances: 0-None Auditory Disturbances: 0-None Visual Disturbances: 0-None Headache: 0-None Present CIWA-Ar Total Score: 13 - Admission Criteria OASAS Guidelines: Admission for Medically Managed Detox: Requires at least one of the followin. CIWA greater than 12 2. Seizures within the past 24 hours 3. Delirium tremens within the past 24 hours 4. Hallucinations within the past 24 hours 5. Acute intervention needed for co occurring medical disorder 6. Acute intervention needed for co occurring psychiatric disorder 7. Severe withdrawal that cannot be handled at a lower level of care (continued vomiting, continued diarrhea, abnormal vital signs) requiring intravenous medication and/or fluids 8. Admitting History and Physical - Past Medical History ...: No - Smoking History Smoking history: Current every day smoker Have you smoked in the past 12 months: Yes Aproximately how many cigarettes per day: 20 Admission ROS [facility] Chief Complaint: Alcohol withdrawal symptoms Allergies/Adverse Reactions: Allergies Allergy/AdvReac Type Severity Reaction Status Date / Time No Known Allergies Allergy Verified 09/12/18 16:36 History of Present Illness: 59 years old female with a long history of alcohol dependence is seeking admission to detox. Her last admission was for the period 09/12/2018 - 10/01/2018 and she reports that she relapsed when her mother on May 27, 2019 and her best friend May 21, 2019 respectively. She also lost her mother's brother who was her support. She reports that she drinks 1 pint rum and 6 x 12oz. beer daily. She has medical history of asthma, hypertension, GERD and Hep. C., psych. history of insomnia and she denies suicidal ideation at this time. She is unemployed, lives in an apartment in the [place] and denies legal issues. 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 Exam Limitations: No Limitations - Ebola screening Have you traveled outside of the country in the last 21 days: No Have you had contact with anyone from an Ebola affected area: No Have you been sick,other than usual withdrawal symptoms: No Do you have a fever: No - Review of Systems Constitutional: Chills, Loss of Appetite, Malaise, Changes in sleep EENT: reports: Nose Congestion Respiratory: reports: No Symptoms reported Cardiac: reports: No Symptoms Reported GI: reports: Diarrhea (x 2), Poor Appetite, Poor Fluid Intake, Abdominal cramping : reports: No Symptoms Reported Musculoskeletal: reports: Back Pain, Other (left shoulder [pain) Integumentary: reports: Dryness, Flushing Neuro: reports: Tremors Endocrine: reports: No Symptoms Reported Hematology: reports: No Symptoms Reported Psychiatric: reports: Mood/Affect Appropiate, Orientated x3 Other Systems: Reviewed and Negative Patient History - Patient Medical History Hx Anemia: No Hx Asthma: Yes (Albuterol) Hx Chronic Obstructive Pulmonary Disease (COPD): No Hx Cancer: No Hx Cardiac Disorders: No Hx Congestive Heart Failure: No Hx Hypertension: Yes (HCTZ) Hx Seizures: No Hx Diabetes: No Hx Gastrointestinal Disorders: Yes ( GERD- Not on medication) Hx Liver Disease: No Hx Genitourinary Disorders: No Hx Sexually Transmitted Disorders: No Hx Renal Disease (ESRD): No Hx Thyroid Disease: No Hx Human Immunodeficiency Virus (HIV): No (Negative 2019) Hx Hepatitis C: Yes Hx Depression: No Hx Suicide Attempt: No (Denies suicidal ideation at this time) Hx Bipolar Disorder: No Hx Schizophrenia: No - Patient Surgical History Past Surgical History: Yes Hx Neurologic Surgery: No Hx Cataract Extraction: No Hx Cardiac Surgery: No Hx Lung Surgery: No Hx Breast Surgery: No Hx Breast Biopsy: No Hx Abdominal Surgery: No Hx Appendectomy: No Hx Cholecystectomy: No Hx Genitourinary Surgery: No Hx Section: No Hx Orthopedic Surgery: Yes (Left leg surgery November 2018) Hx Hysterectomy: No Anesthesia Reaction: No - PPD History Previous Implant?: Yes Documented Results: Negative w/o proof Implanted On Prior [facility] Admission?: Yes PPD to be Administered?: Yes - Reproductive History Patient is a Female of Child Bearing Age (11 -55 yrs old): Yes LMP comment: Menopausal Patient : No - Smoking Cessation Smoking history: Current every day smoker Have you smoked in the past 12 months: Yes Aproximately how many cigarettes per day: 20 Hx Chewing Tobacco Use: No Initiated information on smoking cessation: Yes 'Breaking Loose' booklet given: 10/20/19 - Substance & Tx. History Hx Alcohol Use: Yes Hx Substance Use: Yes Substance Use Type: Alcohol, Cocaine, Marijuana Hx Substance Use Treatment: Yes ([facility]) - Substances abused Alcohol Substance route: Oral Frequency: Daily Amount used: 1 pint rum and 6 x 12oz. beer Age of first use: 21 Date of last use: 10/20/19 Cocaine Substance route: Inhalation Frequency: Daily Amount used: $40 Age of first use: 27 Date of last use: 10/19/19 Marijuana/Hashish Substance route: Smoking Frequency: 1-2 times per week Amount used: 2 drags Age of first use: 17 Date of last use: 10/19/19 Admission Physical Exam [facility] - Vital Signs Vital Signs: Vital Signs - 24 hr 10/20/19 16:01 Temperature 97.6 F Pulse Rate 66 Respiratory 18 Rate Blood Pressure 129/84 - Physical General Appearance: Yes: Moderate Distress, Tremorous, Anxious HEENTM: Yes: Within Normal Limits Respiratory: Yes: Lungs Clear, Normal Breath Sounds, No Respiratory Distress Neck: Yes: Within Normal Limits Breast: Yes: Breast Exam Deferred Cardiology: Yes: Regular Rhythm, Regular Rate Abdominal: Yes: Normal Bowel Sounds, Soft Genitourinary: Yes: Within Normal Limits Back: Yes: Normal Inspection Musculoskeletal: Yes: Within Normal Limits Extremities: Yes: Tremors Neurological: Yes: Within Normal Limits Integumentary: Yes: Within Normal Limits Lymphatic: Yes: Within Normal Limits - Diagnostic (1) Hypertension Current Visit: Yes Status: Chronic Qualifiers: Hypertension type: essential hypertension Qualified Code(s): I10 - Essential (primary) hypertension (2) Hep C w/o coma, chronic Current Visit: Yes Status: Chronic (3) Alcohol dependence with uncomplicated withdrawal Current Visit: Yes Status: Acute (4) Asthma Current Visit: Yes Status: Chronic Qualifiers: Asthma severity: mild Asthma persistence: intermittent Asthma complication type: unspecified Qualified Code(s): J45.20 - Mild intermittent asthma, uncomplicated (5) Cocaine dependence, uncomplicated Current Visit: Yes Status: Chronic (6) Nicotine dependence, uncomplicated Current Visit: Yes Status: Chronic Qualifiers: Nicotine product type: cigarettes Qualified Code(s): F17.210 - Nicotine dependence, cigarettes, uncomplicated (7) GERD (gastroesophageal reflux disease) Current Visit: Yes Status: Chronic Qualifiers: Esophagitis presence: esophagitis presence not specified Qualified Code(s): K21.9 - Gastro-esophageal reflux disease without esophagitis (8) Insomnia Current Visit: Yes Status: Chronic Qualifiers: Insomnia type: unspecified Qualified Code(s): G47.00 - Insomnia, unspecified Cleared for Admission S - Detox or Rehab [facility] Level of Care: Medically Managed Detox Regimen/Protocol: Librium Claeared for Rehab Admission: No Breathalyzer - Breathalyzer Breathalyzer: 0.088 Urine Drug Screen - Test Device Lot number: [id number] Expiration date: 05/26/21 - Control Is test valid?: Yes - Results Drug screen NEGATIVE: No Urine drug screen results: THC-Marijuana, TONY-Cocaine Inpatient Rehab Admission - Rehab Decision to Admit Inpatient rehab admission?: No
[2019-10-20] MEDS ORDERED: MAGNESIUM CITRATE 300 ML BOTTLE PO PRN (17:12)
[2019-10-20] MEDS ORDERED: ACETAMINOPHEN 325 MG TABLET (FP) PO PRN (17:12)
[2019-10-20] MEDS ORDERED: MENTHOL/PHENOL 1 EACH UD MM PRN (17:12)
[2019-10-20] MEDS ORDERED: MAG HYDROX/AL HYDROX/SIMETH 30 ML UNIT-DOSE CUP PO PRN (17:12)
[2019-10-20] MEDS ORDERED: ONDANSETRON *ODT* 4 MG TABLET SL ONE (17:12)
[2019-10-20] MEDS ORDERED: MAGNESIUM HYDROX 2400MG/30ML ORAL SUSPENSION 30 ML CUP PO PRN (17:12)
[2019-10-20] MEDS ORDERED: NICOTINE POLACRILEX 2 MG GUM BUC PRN (17:12)
[2019-10-20] MEDS ORDERED: ALBUTEROL SO4 HFA INHALER IH PRN (17:14)
[2019-10-20] MEDS: chlordiazePOXIDE HCL 10 MG CAPSULE PO PRN (18:26)
[2019-10-20] MEDS: BISMUTH SUBSALICYLATE 524 MG/30 ML UD PO PRN (19:29)
[2019-10-20] MEDS: METHOCARBAMOL 500 MG TABLET PO PRN (22:32)
[2019-10-20] MEDS: chlordiazePOXIDE HCL 25 MG CAPSULE PO SCH (22:33)
[2019-10-20] MEDS: IBUPROFEN 400 MG TABLET (FP) PO PRN (22:33)
[2019-10-20] MEDS: THIAMINE HCL 100 MG TABLET (FP) PO SCH (22:35)
[2019-10-20] MEDS: MELATONIN 5 MG TABLETS PO SCH (22:35)
[2019-10-21] MEDS: chlordiazePOXIDE HCL 25 MG CAPSULE PO SCH ×3 (05:22→22:07)
--- NOTE | 2019-10-21 09:25 | EKG ---
Test Reason : Blood Pressure : / mmHG Vent. Rate : 061 BPM Atrial Rate : 061 BPM P-R Int : 140 ms QRS Dur : 076 ms QT Int : 482 ms P-R-T Axes : 077 073 073 degrees QTc Int : 485 ms NORMAL SINUS RHYTHM LEFT VENTRICULAR HYPERTROPHY PROLONGED QT ABNORMAL ECG Confirmed by MD HANS, VINCE ([id number]) on 10/21/2019 9:24:35 AM Referred By: Confirmed By:VINCE MAXWELL MD
--- NOTE | 2019-10-21 09:31 | CONSULT ---
[facility] Psychiatric Consult - Data Date of interview: 10/21/19 Admission source: Self-referred Identifying data: Ms Alvarez is a 59 years old female, mother of a 26 years old son, unemployed receiving SSI, living with son in an apartment in the [place] seeking detox treatment for alcohol, cocaine and cannabis Substance Abuse History: Reports history of alcohol, cocaine and marijuana use. Refer to addiction counselor's summary for further information Medical History: Significant for bronchial asthma, hypertension, GERD, history of treatment for hepatitis C and orthosurgery( fracture left legg in 2019, ca rpal tunnel right wrist). Smokes cigarettes 1 ppd Psychiatric History: Denies history of previous psychiatric treatment. However at present, reports feeling depressed and sleeping poor on account of multiple losses in the family. Physical/Sexual Abuse/Trauma History: Denies history of abuse as a child or DV relationship as an adult Mental Status Exam - Mental Status Exam Alert and Oriented to: Time, Place, Person Cognitive Function: Fair Patient Appearance: Well Groomed Mood: Depressed Affect: Appropriate Patient Behavior: Cooperative Speech Pattern: Clear Voice Loudness: Normal Thought Process: Intact, Goal Oriented Thought Disorder: Not Present Hallucinations: Denies Suicidal Ideation: Denies Homicidal Ideation: Denies Insight/Judgement: Poor Sleep: Poorly Appetite: Poor Muscle strength/Tone: Normal Gait/Station: Normal Psychiatric Findings - Problem List ([place] 1, 2,3) (1) Bereavement Current Visit: Yes Status: Chronic (2) Substance induced mood disorder Current Visit: Yes Status: Acute (3) Substance-induced sleep disorder Current Visit: No Status: Acute (4) Alcohol dependence with uncomplicated withdrawal Current Visit: Yes Status: Acute (5) Cocaine dependence, uncomplicated Current Visit: Yes Status: Chronic (6) Cannabis abuse Current Visit: No Status: Chronic (7) Nicotine dependence, uncomplicated Current Visit: Yes Status: Chronic Qualifiers: Nicotine product type: cigarettes Qualified Code(s): F17.210 - Nicotine dependence, cigarettes, uncomplicated (8) Asthma Current Visit: Yes Status: Chronic Qualifiers: Asthma severity: mild Asthma persistence: intermittent Asthma complication type: unspecified Qualified Code(s): J45.20 - Mild intermittent asthma, uncomplicated (9) Hypertension Current Visit: Yes Status: Chronic Qualifiers: Hypertension type: essential hypertension Qualified Code(s): I10 - Essential (primary) hypertension (10) GERD (gastroesophageal reflux disease) Current Visit: Yes Status: Chronic Qualifiers: Esophagitis presence: esophagitis presence not specified Qualified Code(s): K21.9 - Gastro-esophageal reflux disease without esophagitis (11) Hepatitis C Current Visit: Yes Status: Chronic - Initial Treatment Plan Initial Treatment Plan: 1) Continue Melatonin 5 mg po HS prn for insomnia as already ordered. 2) Continue inpatient detoxification
[2019-10-21] MEDS: HYDROCHLOROTHIAZIDE 12.5 MG CAPSULE (FP) PO SCH (10:11)
[2019-10-21] MEDS: NICOTINE 21 MG/24 HOURS TOPICAL PATCH TD SCH (10:11)
[2019-10-21] MEDS: PRENATAL VITAMINS W/ FOLIC ACID TABLET (FP) PO SCH (10:13)
[2019-10-21 11:10] LABS: HEMATOCRIT 39.3 % (32.4-45.2); HEMOGLOBIN 13.2 GM/dL (10.7-15.3); MCH 35.2 pg (25.7-33.7); MCHC 33.6 g/dl (32.0-36.0); MEAN CELL VOLUME 104.7 fl (80-96); MEAN PLT VOLUME 10.3 fl (7.5-11.1); PLATELET COUNT 174 K/MM3 (134-434); RBC 3.75 M/mm3 (3.60-5.2); RDW 15.1 % (11.6-15.6)
[2019-10-21 11:18] LABS: ALBUMIN 3.4 g/dl (3.4-5.0); BILIRUBIN,TOTAL 1.1 mg/dL (0.2-1); BLOOD UREA NITROGEN 6.8 mg/dL (7-18); CALCIUM 9.5 mg/dL (8.5-10.1); CREATININE 0.8 mg/dL (0.55-1.3); POTASSIUM 3.7 mmol/L (3.5-5.1); TOT PROT 7.6 g/dl (6.4-8.2)
--- NOTE | 2019-10-21 11:31 | PN ---
S CIWA - CIWA Score Nausea/Vomitin-No Nausea/No Vomiting Muscle Tremors: 3 Anxiety: 2 Agitation: 3 Paroxysmal Sweats: 2 Orientation: 0-Oriented Tacttile Disturbances: 0-None Auditory Disturbances: 0-None Visual Disturbances: 0-None Headache: 0-None Present CIWA-Ar Total Score: 10 BHS Progress Note (SOAP) Subjective: sweats chills shakes interrupted sleep diarrhea. I am lactose intolerant Objective: 10/21/19 11:28 Vital Signs Temperature 98.0 F 10/21/19 08:50 Pulse Rate 65 10/21/19 08:50 Respiratory Rate 19 10/21/19 08:50 Blood Pressure 134/80 10/21/19 08:50 O2 Sat by Pulse Oximetry (%) 100 10/21/19 08:50 Laboratory Tests 10/20/19 10/21/19 10/21/19 16:30 08:10 08:10 WBC 3.0 L RBC 3.75 Hgb 13.2 Hct 39.3 MCV 104.7 H MCH 35.2 H MCHC 33.6 RDW 15.1 D Plt Count 174 D MPV 10.3 D Sodium 139 Potassium 3.7 Chloride 99 Carbon Dioxide 36 H Anion Gap 5 L BUN 6.8 L Creatinine 0.8 Est GFR (CKD-EPI)AfAm 93.53 Est GFR (CKD-EPI)NonAf 80.70 Random Glucose 90 Calcium 9.5 Total Bilirubin 1.1 H AST 43 H ALT 30 Alkaline Phosphatase 125 H Total Protein 7.6 Albumin 3.4 COVID-19 ([facility]) Not detected labs noted aaox3 ambulating no acute distress Assessment: 10/21/19 11:28 withdrawals Plan: continue detox increase fluids ensure clears ordered.
--- NOTE | 2019-10-21 16:09 | EKG ---
Test Reason : Blood Pressure : / mmHG Vent. Rate : 064 BPM Atrial Rate : 064 BPM P-R Int : 132 ms QRS Dur : 082 ms QT Int : 460 ms P-R-T Axes : 079 075 075 degrees QTc Int : 474 ms NORMAL SINUS RHYTHM PROLONGED QT Prominent U waves ABNORMAL ECG Confirmed by MD HANS, VINCE ([id number]) on 10/21/2019 4:09:39 PM Referred By: Confirmed By:VINCE MAXWELL MD
[2019-10-21] MEDS: BISMUTH SUBSALICYLATE 524 MG/30 ML UD PO PRN (19:27)
[2019-10-21] MEDS: MELATONIN 5 MG TABLETS PO SCH (22:07)
[2019-10-21] MEDS: THIAMINE HCL 100 MG TABLET (FP) PO SCH (22:07)
[2019-10-22] MEDS: chlordiazePOXIDE 5 MG CAPSULE PO SCH ×3 (05:49→22:21)
[2019-10-22] MEDS: METHOCARBAMOL 500 MG TABLET PO PRN ×2 (05:50→22:21)
[2019-10-22] MEDS: IBUPROFEN 400 MG TABLET (FP) PO PRN (05:50)
[2019-10-22] MEDS: ACETAMINOPHEN 325 MG TABLET (FP) PO PRN ×2 (08:52→22:21)
[2019-10-22] MEDS: chlordiazePOXIDE HCL 10 MG CAPSULE PO PRN (09:49)
[2019-10-22] MEDS: NICOTINE 21 MG/24 HOURS TOPICAL PATCH TD SCH (09:49)
[2019-10-22] MEDS: PRENATAL VITAMINS W/ FOLIC ACID TABLET (FP) PO SCH (09:49)
[2019-10-22] MEDS: HYDROCHLOROTHIAZIDE 12.5 MG CAPSULE (FP) PO SCH (09:50)
--- NOTE | 2019-10-22 14:07 | PN ---
S CIWA - CIWA Score Nausea/Vomitin-No Nausea/No Vomiting Muscle Tremors: 3 Anxiety: 2 Agitation: 2 Paroxysmal Sweats: 2 Orientation: 0-Oriented Tacttile Disturbances: 0-None Auditory Disturbances: 0-None Visual Disturbances: 0-None Headache: 0-None Present CIWA-Ar Total Score: 9 [facility] Progress Note (SOAP) Subjective: shakes sweats agitation Objective: 10/22/19 14:07 Vital Signs Temperature 96.9 F L 10/22/19 08:46 Pulse Rate 73 10/22/19 08:46 Respiratory Rate 16 10/22/19 08:46 Blood Pressure 118/68 10/22/19 08:46 O2 Sat by Pulse Oximetry (%) 99 10/22/19 08:46 Laboratory Tests 10/20/19 10/21/19 10/21/19 16:30 08:10 08:10 WBC 3.0 L RBC 3.75 Hgb 13.2 Hct 39.3 MCV 104.7 H MCH 35.2 H MCHC 33.6 RDW 15.1 D Plt Count 174 D MPV 10.3 D Sodium Potassium Chloride Carbon Dioxide Anion Gap BUN Creatinine Est GFR (CKD-EPI)AfAm Est GFR (CKD-EPI)NonAf Random Glucose Calcium Total Bilirubin AST ALT Alkaline Phosphatase Total Protein Albumin Syphilis Serology Reactive A* RPR Titer COVID-19 ([place]) Not detected 10/21/19 10/21/19 08:10 08:10 WBC RBC Hgb Hct MCV MCH MCHC RDW Plt Count MPV Sodium 139 Potassium 3.7 Chloride 99 Carbon Dioxide 36 H Anion Gap 5 L BUN 6.8 L Creatinine 0.8 Est GFR (CKD-EPI)AfAm 93.53 Est GFR (CKD-EPI)NonAf 80.70 Random Glucose 90 Calcium 9.5 Total Bilirubin 1.1 H AST 43 H ALT 30 Alkaline Phosphatase 125 H Total Protein 7.6 Albumin 3.4 Syphilis Serology RPR Titer Reactive 1:1 H D COVID-19 ([facility]) aaox3 ambulating no acute distress 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
[2019-10-22] MEDS: MELATONIN 5 MG TABLETS PO SCH (22:21)
[2019-10-22] MEDS: THIAMINE HCL 100 MG TABLET (FP) PO SCH (22:22)
[2019-10-23] MEDS ORDERED: chlordiazePOXIDE HCL 10 MG CAPSULE PO PRN
[2019-10-23] MEDS: IBUPROFEN 400 MG TABLET (FP) PO PRN (05:34)
[2019-10-23] MEDS: chlordiazePOXIDE HCL 10 MG CAPSULE PO SCH ×3 (05:34→22:29)
[2019-10-23] MEDS: PRENATAL VITAMINS W/ FOLIC ACID TABLET (FP) PO SCH (11:31)
[2019-10-23] MEDS: NICOTINE 21 MG/24 HOURS TOPICAL PATCH TD SCH (11:31)
[2019-10-23] MEDS: HYDROCHLOROTHIAZIDE 12.5 MG CAPSULE (FP) PO SCH (11:31)
[2019-10-23] MEDS ORDERED: COLLOIDAL OATMEAL 1 BAR EACH TP ONE (12:22)
--- NOTE | 2019-10-23 12:24 | PN ---
S CIWA - CIWA Score Nausea/Vomitin-No Nausea/No Vomiting Muscle Tremors: 2 Anxiety: 1-Mildly Anxious Agitation: 1-Slight > Activity Paroxysmal Sweats: No Perspiration Orientation: 0-Oriented Tacttile Disturbances: 0-None Auditory Disturbances: 0-None Visual Disturbances: 0-None Headache: 0-None Present CIWA-Ar Total Score: 4 BHS Progress Note (SOAP) Subjective: diarrhea the soap used for showering is making my skin itch Objective: 10/23/19 12:23 Vital Signs Temperature 97.9 F 10/23/19 08:47 Pulse Rate 72 10/23/19 08:47 Respiratory Rate 19 10/23/19 08:47 Blood Pressure 106/63 10/23/19 08:47 O2 Sat by Pulse Oximetry (%) 100 10/23/19 05:20 aaox3 ambulating no acute distress Assessment: 10/23/19 12:24 withdrawals Plan: continue detox aveeno soap x one ordered d/c in am
--- NOTE | 2019-10-23 13:34 | CONSULT ---
[facility] Psychiatric Consult - Data Date of interview: 10/23/19 Mental Status Exam - Mental Status Exam Mood: Depressed (mildly), Anxious Affect: Appropriate Patient Behavior: Cooperative Speech Pattern: Clear Voice Loudness: Normal Thought Process: Intact, Goal Oriented Hallucinations: Denies Suicidal Ideation: Denies Homicidal Ideation: Denies Insight/Judgement: Poor Sleep: Poorly Appetite: Good Muscle strength/Tone: Normal Gait/Station: Normal Psychiatric Findings - Problem List ([place] 1, 2,3) (1) Bereavement Current Visit: Yes Status: Chronic (2) Substance induced mood disorder Current Visit: Yes Status: Acute (3) Substance-induced sleep disorder Current Visit: No Status: Acute (4) Alcohol dependence with uncomplicated withdrawal Current Visit: Yes Status: Acute (5) Cocaine dependence, uncomplicated Current Visit: Yes Status: Chronic (6) Cannabis abuse Current Visit: No Status: Chronic (7) Nicotine dependence, uncomplicated Current Visit: Yes Status: Chronic Qualifiers: Nicotine product type: cigarettes Qualified Code(s): F17.210 - Nicotine dependence, cigarettes, uncomplicated (8) Asthma Current Visit: Yes Status: Chronic Qualifiers: Asthma severity: mild Asthma persistence: intermittent Asthma complication type: unspecified Qualified Code(s): J45.20 - Mild intermittent asthma, uncomplicated (9) Hypertension Current Visit: Yes Status: Chronic Qualifiers: Hypertension type: essential hypertension Qualified Code(s): I10 - Essential (primary) hypertension (10) GERD (gastroesophageal reflux disease) Current Visit: Yes Status: Chronic Qualifiers: Esophagitis presence: esophagitis presence not specified Qualified Code(s): K21.9 - Gastro-esophageal reflux disease without esophagitis (11) Hepatitis C Current Visit: Yes Status: Chronic
[2019-10-23] MEDS: ACETAMINOPHEN 325 MG TABLET (FP) PO PRN (17:40)
[2019-10-23] MEDS ORDERED: QUEtiapine FUMARATE 400 MG TABLET PO SCH (22:00)
[2019-10-23] MEDS ORDERED: PRAZOSIN HCL 1 MG CAPSULE PO SCH (22:00)
[2019-10-23] MEDS: THIAMINE HCL 100 MG TABLET (FP) PO SCH (22:29)
[2019-10-23] MEDS: METHOCARBAMOL 500 MG TABLET PO PRN (22:29)
[2019-10-23] MEDS: MELATONIN 5 MG TABLETS PO SCH (22:30)
[2019-10-24] MEDS ORDERED: chlordiazePOXIDE HCL 10 MG CAPSULE PO ONE (05:00)
[2019-10-24 06:33] VITALS: PULSE 70
[2019-10-24 10:14] VITALS: BP 83/52; TEMP 97.5
[2019-10-24] MEDS: HYDROCHLOROTHIAZIDE 12.5 MG CAPSULE (FP) PO SCH (10:21)
[2019-10-24] MEDS: NICOTINE 21 MG/24 HOURS TOPICAL PATCH TD SCH (10:21)
[2019-10-24] MEDS: PRENATAL VITAMINS W/ FOLIC ACID TABLET (FP) PO SCH (10:21)
[2019-10-24] MEDS: METHOCARBAMOL 500 MG TABLET PO PRN (10:22)
--- NOTE | 2019-10-24 10:36 | DS ---
[facility] Detox Discharge Summary Admission Date: 10/20/19 Discharge Date: 10/24/19 - History Present History: Alcohol Dependence, Cannabis Dependence, Cocaine Dependence Additional Comments: Patient was seen and examined at bedside. Alert and oriented x 3, in no acute respiratory distress. Full ROM, ambulatory in the unit without any assistance. Skin warm to touch without any lesions. Detox protocol completed, patient stable for discharge today. Pertinent Past History: History of asthma, HTN, GERD, Hep C(treated), alcohol, cocaine, cannabis and nicotine use disorder. - Physical Exam Results Vital Signs: Vital Signs Temperature 97.5 F L 10/24/19 09:15 Pulse Rate 70 10/24/19 09:15 Respiratory Rate 18 10/24/19 09:15 Blood Pressure 83/52 L 10/24/19 09:15 O2 Sat by Pulse Oximetry (%) 100 10/24/19 09:15 Vital Signs 10/24/19 10/24/19 10/24/19 06:30 06:32 09:15 Temperature 96.8 F L 97.5 F L Pulse Rate 78 70 70 Respiratory 16 18 Rate Blood Pressure 83/60 L 89/55 L 83/52 L O2 Sat by Pulse 100 100 Oximetry (%) Laboratory Last Values WBC 3.0 K/mm3 (4.0-10.0) L 10/21/19 08:10 RBC 3.75 M/mm3 (3.60-5.2) 10/21/19 08:10 Hgb 13.2 GM/dL (10.7-15.3) 10/21/19 08:10 Hct 39.3 % (32.4-45.2) 10/21/19 08:10 MCV 104.7 fl (80-96) H 10/21/19 08:10 MCH 35.2 pg (25.7-33.7) H 10/21/19 08:10 MCHC 33.6 g/dl (32.0-36.0) 10/21/19 08:10 RDW 15.1 % (11.6-15.6) D 10/21/19 08:10 Plt Count 174 K/MM3 (134-434) D 10/21/19 08:10 MPV 10.3 fl (7.5-11.1) D 10/21/19 08:10 Sodium 139 mmol/L (136-145) 10/21/19 08:10 Potassium 3.7 mmol/L (3.5-5.1) 10/21/19 08:10 Chloride 99 mmol/L (98-107) 10/21/19 08:10 Carbon Dioxide 36 mmol/L (21-32) H 10/21/19 08:10 Anion Gap 5 MMOL/L (8-16) L 10/21/19 08:10 BUN 6.8 mg/dL (7-18) L 10/21/19 08:10 Creatinine 0.8 mg/dL (0.55-1.3) 10/21/19 08:10 Est GFR (CKD-EPI)AfAm 93.53 10/21/19 08:10 Est GFR (CKD-EPI)NonAf 80.70 10/21/19 08:10 Random Glucose 90 mg/dL (74-106) 10/21/19 08:10 Calcium 9.5 mg/dL (8.5-10.1) 10/21/19 08:10 Total Bilirubin 1.1 mg/dL (0.2-1) H 10/21/19 08:10 AST 43 U/L (15-37) H 10/21/19 08:10 ALT 30 U/L (13-61) 10/21/19 08:10 Alkaline Phosphatase 125 U/L (45-117) H 10/21/19 08:10 Total Protein 7.6 g/dl (6.4-8.2) 10/21/19 08:10 Albumin 3.4 g/dl (3.4-5.0) 10/21/19 08:10 Syphilis Serology Reactive (NONREACTIVE) A* 10/21/19 08:10 RPR Titer Reactive 1:1 (NONREACTIVE) H D 10/21/19 08:10 COVID-19 ([place]) Not detected (Not Detected) 10/20/19 16:30 Labs noted. Pertinent Admission Physical Exam Findings: Withdrawal symptoms. - Treatment Hospital Course: Detox Protocol Followed, Detoxed Safely, Responded well, Discharged Condition Good - Medication Discharge Medications: Ambulatory Orders Albuterol Sulfate Inhaler - [Ventolin Hfa Inhaler -] 2 inh PO Q4H PRN 10/20/19 Ammonium Lactate Lotion [Lac-Hydrin 12] 1 applic TP BID 10/20/19 Fluticasone Prop 0.05% Nasal [Flonase -] 1 spray NS DAILY 10/20/19 Hydrochlorothiazide [Hctz -] 12.5 mg PO DAILY 10/20/19 Naproxen [Naprosyn] 500 mg PO BID 10/20/19 traZODone HCL [Trazodone HCl] 50 mg PO HS 10/20/19 - Diagnosis (1) Alcohol dependence with uncomplicated withdrawal Current Visit: Yes Status: Acute (2) Asthma Current Visit: Yes Status: Chronic Qualifiers: Asthma severity: mild Asthma persistence: intermittent Asthma complication type: unspecified Qualified Code(s): J45.20 - Mild intermittent asthma, uncomplicated (3) Cocaine dependence, uncomplicated Current Visit: Yes Status: Chronic (4) GERD (gastroesophageal reflux disease) Current Visit: Yes Status: Chronic Qualifiers: Esophagitis presence: esophagitis presence not specified Qualified Code(s): K21.9 - Gastro-esophageal reflux disease without esophagitis (5) Hepatitis C Current Visit: Yes Status: Chronic (6) Nicotine dependence, uncomplicated Current Visit: Yes Status: Chronic Qualifiers: Nicotine product type: cigarettes Qualified Code(s): F17.210 - Nicotine dependence, cigarettes, uncomplicated (7) Cannabis abuse Current Visit: No Status: Chronic - AMA Did Patient Leave Against Medical Advice: No
== END 2019-10-24 12:36 | disposition other institution (70) | DRG 774 ==
LOC: YASAS 14:44 → Y6N 16:03
PROVIDERS: ADMIT Allergy & Immunology; ATTEND Allergy & Immunology
PROC: HZ2ZZZZ Detoxification Services for Substance Abuse Treatment (ICD-10-PCS; principal; 2019-10-20)
DX: F10.230 Alcohol dependence with withdrawal, uncomplicated (principal); F14.20 Cocaine dependence, uncomplicated; F12.20 Cannabis dependence, uncomplicated; F17.210 Nicotine dependence, cigarettes, uncomplicated; F19.282 Other psychoactive substance dependence with psychoactive substance-induced sleep disorder; F19.24 Other psychoactive substance dependence with psychoactive substance-induced mood disorder; I10 Essential (primary) hypertension; J45.20 Mild intermittent asthma, uncomplicated; K21.9 Gastro-esophageal reflux disease without esophagitis; G47.00 Insomnia, unspecified; B18.2 Chronic viral hepatitis C; Z63.4 Disappearance and death of family member; Z87.81 Personal history of (healed) traumatic fracture; Z98.890 Other specified postprocedural states; Z86.19 Personal history of other infectious and parasitic diseases; Z59.0 Homelessness
CPT/HCPCS: 36415; 80053; 85027; 86593; 86780; 93005; 93010; U0003

== ENCOUNTER 2019-10-24 11:51 | Inpatient (IN) | payer OTHER ==
[2019-10-24] MEDS ORDERED: P-EPHED 60MG/TRIPROLIDI 2.5MG TABLET PO PRN (13:49)
[2019-10-24] MEDS ORDERED: MAG HYDROX/AL HYDROX/SIMETH 30 ML UNIT-DOSE CUP PO PRN (13:49)
[2019-10-24] MEDS ORDERED: MAGNESIUM CITRATE 300 ML BOTTLE PO PRN (13:49)
[2019-10-24] MEDS ORDERED: MENTHOL/PHENOL 1 EACH UD MM PRN (13:49)
[2019-10-24] MEDS ORDERED: guaiFENesin 200 MG/10 ML 10 ML UNIT-DOSE CUPS PO PRN (13:49)
[2019-10-24] MEDS ORDERED: MAGNESIUM HYDROX 2400MG/30ML ORAL SUSPENSION 30 ML CUP PO PRN (13:49)
[2019-10-24] MEDS ORDERED: NICOTINE POLACRILEX 2 MG GUM BUC PRN (13:49)
--- NOTE | 2019-10-24 13:57 | HP ---
[facility] Rehab Assess/Revision - Admission History Admitted to Rehab from: [facility] Date of Admission to Rehab: 10/24/2019 - Findings Detox History & Physical reviewed: Yes Concur with findings: Yes Inpatient Rehab Admission - Rehab Decision to Admit Inpatient rehab admission?: Yes - Initial Determination Are CD services needed?: Yes Free of communicable disease: Yes Not in need of hospitalization: Yes - Rehab Admission Criteria Previous failed treatment: Yes Poor recovery environment: Yes Comorbidities: Yes Lacks judgement: Yes Patient is meeting Inpatient Rehab admission criteria:: Yes
[2019-10-24] MEDS: hydrOXYzine PAMOATE 25 MG CAPSULE (FP) PO PRN (21:54)
[2019-10-24] MEDS: IBUPROFEN 400 MG TABLET (FP) PO PRN (21:54)
[2019-10-24] MEDS: MELATONIN 5 MG TABLETS PO SCH (21:55)
[2019-10-24] MEDS: THIAMINE HCL 100 MG TABLET (FP) PO SCH (21:55)
[2019-10-25] MEDS: IBUPROFEN 400 MG TABLET (FP) PO PRN ×2 (10:03→21:29)
[2019-10-25] MEDS: NICOTINE 21 MG/24 HOURS TOPICAL PATCH TD SCH (10:04)
[2019-10-25] MEDS: HYDROCHLOROTHIAZIDE 12.5 MG CAPSULE (FP) PO SCH (10:04)
[2019-10-25] MEDS: PRENATAL VITAMINS W/ FOLIC ACID TABLET (FP) PO SCH (10:04)
[2019-10-25] MEDS: ACETAMINOPHEN 325 MG TABLET (FP) PO PRN (16:18)
[2019-10-25] MEDS: MELATONIN 5 MG TABLETS PO SCH (21:27)
[2019-10-25] MEDS: THIAMINE HCL 100 MG TABLET (FP) PO SCH (21:27)
[2019-10-25] MEDS: hydrOXYzine PAMOATE 25 MG CAPSULE (FP) PO PRN (21:29)
[2019-10-26] MEDS: HYDROCHLOROTHIAZIDE 12.5 MG CAPSULE (FP) PO SCH (10:05)
[2019-10-26] MEDS: NICOTINE 21 MG/24 HOURS TOPICAL PATCH TD SCH (10:07)
[2019-10-26] MEDS: ACETAMINOPHEN 325 MG TABLET (FP) PO PRN (10:07)
[2019-10-26] MEDS: PRENATAL VITAMINS W/ FOLIC ACID TABLET (FP) PO SCH (10:09)
[2019-10-26] MEDS: IBUPROFEN 400 MG TABLET (FP) PO PRN (15:22)
--- NOTE | 2019-10-26 15:39 | PN ---
[facility] Progress Note (SOAP) Subjective: Pt c/o Left ear discomfort. Reports was on wax ear drops and has it in her property in security. Objective: 10/26/19 15:35 Vital Signs - 24 hr 10/25/19 10/26/19 10/26/19 20:47 06:35 10:00 Temperature 96.8 F L Pulse Rate 65 70 Respiratory 16 Rate Blood Pressure 99/64 105/70 O2 Sat by Pulse 100 96 Oximetry (%) 10/26/19 14:03 Temperature Pulse Rate Respiratory Rate Blood Pressure O2 Sat by Pulse 100 Oximetry (%) Alert o x 3 nad oob ambulating with steady gait Ears:no redness or swelling, TM intact, rosalind. Small amount of cerumen in ear canal. Assessment: 10/26/19 15:37 Ear wax Plan: Debrox ear drops 5gtts to left ear bid
[2019-10-26] MEDS: hydrOXYzine PAMOATE 25 MG CAPSULE (FP) PO PRN (21:13)
[2019-10-26] MEDS: THIAMINE HCL 100 MG TABLET (FP) PO SCH (21:13)
[2019-10-26] MEDS: MELATONIN 5 MG TABLETS PO SCH (21:14)
[2019-10-26] MEDS: METHOCARBAMOL 500 MG TABLET PO PRN (21:14)
[2019-10-26] MEDS: CARBAMIDE PEROXIDE 6.5% OTIC 15 ML BOTTLE AS SCH (21:15)
[2019-10-26] MEDS ORDERED: PT OWN MED DRAWER 7, Y5N ONE (21:15)
[2019-10-27] MEDS: IBUPROFEN 400 MG TABLET (FP) PO PRN ×2 (06:19→16:30)
[2019-10-27] MEDS: CARBAMIDE PEROXIDE 6.5% OTIC 15 ML BOTTLE AS SCH ×2 (10:05→21:14)
[2019-10-27] MEDS: NICOTINE 21 MG/24 HOURS TOPICAL PATCH TD SCH (10:05)
[2019-10-27] MEDS: PRENATAL VITAMINS W/ FOLIC ACID TABLET (FP) PO SCH (10:05)
[2019-10-27] MEDS: HYDROCHLOROTHIAZIDE 12.5 MG CAPSULE (FP) PO SCH (10:06)
[2019-10-27] MEDS: ACETAMINOPHEN 325 MG TABLET (FP) PO PRN (10:08)
[2019-10-27] MEDS: METHOCARBAMOL 500 MG TABLET PO PRN ×2 (10:11→21:12)
[2019-10-27] MEDS: MELATONIN 5 MG TABLETS PO SCH (21:12)
[2019-10-27] MEDS: hydrOXYzine PAMOATE 25 MG CAPSULE (FP) PO PRN (21:12)
[2019-10-27] MEDS ORDERED: PT OWN MED DRAWER 7, Y5N ONE (21:13)
[2019-10-27] MEDS: THIAMINE HCL 100 MG TABLET (FP) PO SCH (21:14)
[2019-10-28] MEDS: IBUPROFEN 400 MG TABLET (FP) PO PRN ×3 (06:47→21:21)
[2019-10-28] MEDS ORDERED: COLLOIDAL OATMEAL 1 BAR EACH TP PRN (08:15)
[2019-10-28] MEDS ORDERED: PT OWN MED DRAWER 7, Y5N ONE (09:09)
[2019-10-28] MEDS: HYDROCHLOROTHIAZIDE 12.5 MG CAPSULE (FP) PO SCH (09:50)
[2019-10-28] MEDS: NICOTINE 21 MG/24 HOURS TOPICAL PATCH TD SCH (09:51)
[2019-10-28] MEDS: CARBAMIDE PEROXIDE 6.5% OTIC 15 ML BOTTLE AS SCH ×2 (09:51→21:20)
[2019-10-28] MEDS: PRENATAL VITAMINS W/ FOLIC ACID TABLET (FP) PO SCH (09:51)
[2019-10-28] MEDS: ACETAMINOPHEN 325 MG TABLET (FP) PO PRN (09:53)
[2019-10-28] MEDS: METHOCARBAMOL 500 MG TABLET PO PRN ×2 (14:43→21:23)
[2019-10-28] MEDS: hydrOXYzine PAMOATE 25 MG CAPSULE (FP) PO PRN (21:20)
[2019-10-28] MEDS: THIAMINE HCL 100 MG TABLET (FP) PO SCH (21:20)
[2019-10-28] MEDS: MELATONIN 5 MG TABLETS PO SCH (21:20)
[2019-10-29] MEDS: IBUPROFEN 400 MG TABLET (FP) PO PRN ×2 (06:39→21:21)
[2019-10-29] MEDS: METHOCARBAMOL 500 MG TABLET PO PRN ×2 (06:40→21:22)
[2019-10-29] MEDS ORDERED: PT OWN MED DRAWER 7, Y5N ONE (09:22)
[2019-10-29] MEDS: HYDROCHLOROTHIAZIDE 12.5 MG CAPSULE (FP) PO SCH (10:17)
[2019-10-29] MEDS: PRENATAL VITAMINS W/ FOLIC ACID TABLET (FP) PO SCH (10:17)
[2019-10-29] MEDS: NICOTINE 21 MG/24 HOURS TOPICAL PATCH TD SCH (10:17)
[2019-10-29] MEDS: CARBAMIDE PEROXIDE 6.5% OTIC 15 ML BOTTLE AS SCH ×2 (10:17→21:23)
[2019-10-29] MEDS: ACETAMINOPHEN 325 MG TABLET (FP) PO PRN (10:19)
[2019-10-29] MEDS: ALBUTEROL SO4 HFA INHALER IH PRN (11:18)
[2019-10-29] MEDS: LOPERAMIDE HCL 2 MG CAPSULE PO PRN (21:21)
[2019-10-29] MEDS: MELATONIN 5 MG TABLETS PO SCH (21:21)
[2019-10-29] MEDS: hydrOXYzine PAMOATE 25 MG CAPSULE (FP) PO PRN (21:22)
[2019-10-29] MEDS: THIAMINE HCL 100 MG TABLET (FP) PO SCH (21:23)
[2019-10-30] MEDS: LOPERAMIDE HCL 2 MG CAPSULE PO PRN (06:27)
[2019-10-30] MEDS: METHOCARBAMOL 500 MG TABLET PO PRN ×2 (06:28→21:34)
[2019-10-30] MEDS: IBUPROFEN 400 MG TABLET (FP) PO PRN (06:28)
[2019-10-30] MEDS ORDERED: PT OWN MED DRAWER 7, Y5N ONE (08:55)
[2019-10-30] MEDS: CARBAMIDE PEROXIDE 6.5% OTIC 15 ML BOTTLE AS SCH ×2 (10:01→21:33)
[2019-10-30] MEDS: HYDROCHLOROTHIAZIDE 12.5 MG CAPSULE (FP) PO SCH (10:02)
[2019-10-30] MEDS: PRENATAL VITAMINS W/ FOLIC ACID TABLET (FP) PO SCH (10:03)
[2019-10-30] MEDS: ACETAMINOPHEN 325 MG TABLET (FP) PO PRN ×2 (10:04→21:34)
[2019-10-30] MEDS: NICOTINE 21 MG/24 HOURS TOPICAL PATCH TD SCH (10:05)
[2019-10-30] MEDS: THIAMINE HCL 100 MG TABLET (FP) PO SCH (21:32)
[2019-10-30] MEDS: MELATONIN 5 MG TABLETS PO SCH (21:33)
[2019-10-30] MEDS: ALBUTEROL SO4 HFA INHALER IH PRN (23:30)
[2019-10-31] MEDS: IBUPROFEN 400 MG TABLET (FP) PO PRN ×2 (06:50→18:19)
[2019-10-31] MEDS: METHOCARBAMOL 500 MG TABLET PO PRN ×2 (06:50→21:28)
[2019-10-31] MEDS: ALBUTEROL SO4 HFA INHALER IH PRN ×2 (06:52→13:12)
[2019-10-31] MEDS: PRENATAL VITAMINS W/ FOLIC ACID TABLET (FP) PO SCH (10:33)
[2019-10-31] MEDS: HYDROCHLOROTHIAZIDE 12.5 MG CAPSULE (FP) PO SCH (10:33)
[2019-10-31] MEDS: CARBAMIDE PEROXIDE 6.5% OTIC 15 ML BOTTLE AS SCH ×2 (10:33→21:30)
[2019-10-31] MEDS: NICOTINE 21 MG/24 HOURS TOPICAL PATCH TD SCH (10:34)
[2019-10-31] MEDS ORDERED: PT OWN MED DRAWER 7, Y5N ONE ×2 (10:40→21:30)
[2019-10-31] MEDS: hydrOXYzine PAMOATE 25 MG CAPSULE (FP) PO PRN (21:28)
[2019-10-31] MEDS: THIAMINE HCL 100 MG TABLET (FP) PO SCH (21:28)
[2019-10-31] MEDS: MELATONIN 5 MG TABLETS PO SCH (21:29)
[2019-11-01] MEDS: IBUPROFEN 400 MG TABLET (FP) PO PRN ×2 (06:03→21:43)
[2019-11-01] MEDS: METHOCARBAMOL 500 MG TABLET PO PRN ×2 (06:03→21:43)
[2019-11-01] MEDS: PRENATAL VITAMINS W/ FOLIC ACID TABLET (FP) PO SCH (10:17)
[2019-11-01] MEDS: NICOTINE 21 MG/24 HOURS TOPICAL PATCH TD SCH (10:18)
[2019-11-01] MEDS: CARBAMIDE PEROXIDE 6.5% OTIC 15 ML BOTTLE AS SCH ×2 (10:18→21:45)
[2019-11-01] MEDS: HYDROCHLOROTHIAZIDE 12.5 MG CAPSULE (FP) PO SCH (10:18)
[2019-11-01] MEDS: ALBUTEROL SO4 HFA INHALER IH PRN ×2 (10:20→13:38)
[2019-11-01] MEDS ORDERED: PT OWN MED DRAWER 7, Y5N ONE (10:26)
[2019-11-01] MEDS: hydrOXYzine PAMOATE 25 MG CAPSULE (FP) PO PRN (21:43)
[2019-11-01] MEDS: MELATONIN 5 MG TABLETS PO SCH (21:44)
[2019-11-01] MEDS: THIAMINE HCL 100 MG TABLET (FP) PO SCH (21:44)
[2019-11-02] MEDS: ALBUTEROL SO4 HFA INHALER IH PRN ×2 (06:03→09:36)
[2019-11-02] MEDS: ACETAMINOPHEN 325 MG TABLET (FP) PO PRN (06:04)
[2019-11-02] MEDS: METHOCARBAMOL 500 MG TABLET PO PRN ×2 (06:04→21:48)
--- NOTE | 2019-11-02 10:11 | PN ---
S Progress Note Note: c/o discomfort to right wrist. Reports Spraining it 6 months ago while pushing on her drawers. reports she has and brought a wrist brace with her to treatment. Vital Signs - 24 hr 11/01/19 11/01/19 11/02/19 13:54 19:33 07:23 Temperature 97.8 F 97.6 F Pulse Rate 90 82 Respiratory 18 18 Rate Blood Pressure 121/72 113/79 O2 Sat by Pulse 100 100 100 Oximetry (%) Alert o x3 nad oob ambulating with steady gait Right hand:no swelling/redness; slight bony prominence-chronic.Active ROM, no difficulty. Chronic pain, right wrist D/w pt will order [employer] to apply BID and may use her fabric wrist brace as needed. Pt is agreeable to poc.
[2019-11-02] MEDS ORDERED: METHYL SALICYLATE/MENTHOL OINT 30 GM TUBE TP SCH (10:15)
[2019-11-02] MEDS: NICOTINE 21 MG/24 HOURS TOPICAL PATCH TD SCH (10:21)
[2019-11-02] MEDS: HYDROCHLOROTHIAZIDE 12.5 MG CAPSULE (FP) PO SCH (10:21)
[2019-11-02] MEDS: PRENATAL VITAMINS W/ FOLIC ACID TABLET (FP) PO SCH (10:21)
[2019-11-02] MEDS: CARBAMIDE PEROXIDE 6.5% OTIC 15 ML BOTTLE AS SCH ×2 (10:22→21:49)
[2019-11-02] MEDS: METHYL SALICYLATE/MENTHOL OINT 30 GM TUBE TP SCH ×2 (12:56→21:51)
[2019-11-02] MEDS: FLUTICASONE PROP 0.05% 16 GM NASAL SPRAY NS SCH ×2 (13:55→21:50)
[2019-11-02] MEDS: IBUPROFEN 400 MG TABLET (FP) PO PRN (21:48)
[2019-11-02] MEDS: hydrOXYzine PAMOATE 25 MG CAPSULE (FP) PO PRN (21:48)
[2019-11-02] MEDS: THIAMINE HCL 100 MG TABLET (FP) PO SCH (21:49)
[2019-11-02] MEDS: MELATONIN 5 MG TABLETS PO SCH (21:49)
[2019-11-02] MEDS ORDERED: PT OWN MED DRAWER 7, Y5N ONE (21:50)
[2019-11-03] MEDS: METHOCARBAMOL 500 MG TABLET PO PRN (06:19)
[2019-11-03] MEDS: ACETAMINOPHEN 325 MG TABLET (FP) PO PRN (06:19)
[2019-11-03] MEDS ORDERED: PT OWN MED DRAWER 7, Y5N ONE ×2 (09:25→22:02)
--- NOTE | 2019-11-03 09:42 | CONSULT ---
[facility] Psychiatric Consult - Data Date of interview: 11/03/19 Admission source: [facility] Identifying data: Patient is a 59 year old [place] female, , mother of one, unemployed, domiciled, and is supported with disability benefits. This is one of multiple admissions for patient. Patient admitted to for alcohol dependence. Substance Abuse History: Smoking Cessation. Smoking history: Current every day smoker. Have you smoked in the past 12 months: Yes. Aproximately how many cigarettes per day: 20. Hx Chewing Tobacco Use: No. Initiated information on smoking cessation: Yes. 'Breaking Loose' booklet given: 10/20/19. - Substance & Tx. History. Hx Alcohol Use: Yes. Hx Substance Use: Yes. Substance Use Type: Alcohol, Cocaine, Marijuana. Hx Substance Use Treatment: Yes ([facility]). - Substances abused. Alcohol. Substance route: Oral. Frequency: Daily. Amount used: 1 pint rum and 6 x 12oz. beer. Age of first use: 21. Date of last use: 10/20/19. Cocaine. Substance route: Inhalation. Frequency: Daily. Amount used: $40. Age of first use: 27. Date of last use: 10/19/19. Marijuana/Hashish. Substance route: Smoking. Frequency: 1-2 times per week. Amount used: 2 drags. Age of first use: 17. Date of last use: 10/19/19 Medical History: Significant for bronchial asthma, hypertension, GERD, history of treatment for hepatitis C and orthosurgery( fracture left legg in 2019, carpal tunnel right wrist) Psychiatric History: Patient denies history of psychiatric hospitalizations, outpatient care and suicide attempt. At present patient reports difficulty sle eping. Physical/Sexual Abuse/Trauma History: denies. Mental Status Exam - Mental Status Exam Alert and Oriented to: Time, Place, Person Cognitive Function: Good Patient Appearance: Well Groomed Mood: Hopeful Affect: Appropriate Patient Behavior: Appropriate, Cooperative Speech Pattern: Appropriate Voice Loudness: Normal Thought Process: Goal Oriented Thought Disorder: Not Present Hallucinations: Denies Suicidal Ideation: Denies Homicidal Ideation: Denies Insight/Judgement: Poor Sleep: Poorly Appetite: Fair Muscle strength/Tone: Normal Gait/Station: Normal Psychiatric Findings - Problem List ([place] 1, 2,3) (1) Alcohol dependence Current Visit: Yes Status: Acute (2) Substance-induced sleep disorder Current Visit: Yes Status: Acute (3) Bereavement Current Visit: Yes Status: Chronic (4) Cannabis abuse Current Visit: Yes Status: Chronic (5) Cocaine dependence, uncomplicated Current Visit: Yes Status: Chronic - Initial Treatment Plan Initial Treatment Plan: Psychoeducation provided. Rehab in progress. Will order Trazodone 50mg HS. Benefits and side effects discussed. Verbal consent given.
[2019-11-03] MEDS: CARBAMIDE PEROXIDE 6.5% OTIC 15 ML BOTTLE AS SCH ×2 (10:00→22:00)
[2019-11-03] MEDS: FLUTICASONE PROP 0.05% 16 GM NASAL SPRAY NS SCH ×2 (10:00→21:59)
[2019-11-03] MEDS: PRENATAL VITAMINS W/ FOLIC ACID TABLET (FP) PO SCH (10:01)
[2019-11-03] MEDS: HYDROCHLOROTHIAZIDE 12.5 MG CAPSULE (FP) PO SCH (10:01)
[2019-11-03] MEDS: NICOTINE 21 MG/24 HOURS TOPICAL PATCH TD SCH (10:01)
[2019-11-03] MEDS: IBUPROFEN 400 MG TABLET (FP) PO PRN ×2 (10:02→21:58)
[2019-11-03] MEDS: METHYL SALICYLATE/MENTHOL OINT 30 GM TUBE TP SCH ×2 (10:03→22:02)
[2019-11-03] MEDS: ALBUTEROL SO4 HFA INHALER IH PRN (21:56)
[2019-11-03] MEDS: traZODone HCL 50 MG TABLET (FP) PO SCH (21:58)
[2019-11-03] MEDS: THIAMINE HCL 100 MG TABLET (FP) PO SCH (21:59)
[2019-11-03] MEDS: MELATONIN 5 MG TABLETS PO SCH (21:59)
[2019-11-04] MEDS: ACETAMINOPHEN 325 MG TABLET (FP) PO PRN ×3 (06:25→19:51)
[2019-11-04] MEDS: METHOCARBAMOL 500 MG TABLET PO PRN ×2 (06:25→21:04)
[2019-11-04] MEDS ORDERED: PT OWN MED DRAWER 7, Y5N ONE ×2 (09:08→19:49)
[2019-11-04] MEDS: HYDROCHLOROTHIAZIDE 12.5 MG CAPSULE (FP) PO SCH (10:36)
[2019-11-04] MEDS: ALBUTEROL SO4 HFA INHALER IH PRN (10:36)
[2019-11-04] MEDS: PRENATAL VITAMINS W/ FOLIC ACID TABLET (FP) PO SCH (10:36)
[2019-11-04] MEDS: FLUTICASONE PROP 0.05% 16 GM NASAL SPRAY NS SCH ×2 (10:37→21:05)
[2019-11-04] MEDS: METHYL SALICYLATE/MENTHOL OINT 30 GM TUBE TP SCH ×2 (10:37→21:05)
[2019-11-04] MEDS: CARBAMIDE PEROXIDE 6.5% OTIC 15 ML BOTTLE AS SCH ×2 (10:37→21:05)
[2019-11-04] MEDS: NICOTINE 21 MG/24 HOURS TOPICAL PATCH TD SCH (10:46)
--- NOTE | 2019-11-04 14:14 | PN ---
[facility] Progress Note Note: Patient is scheduled for discharge tomorrow. Script for 30 days supply of Trazadone 50 mg/hs will be electronically transmitted to [facility], [address] [place] [id number]
[2019-11-04] MEDS: hydrOXYzine PAMOATE 25 MG CAPSULE (FP) PO PRN (21:04)
[2019-11-04] MEDS: THIAMINE HCL 100 MG TABLET (FP) PO SCH (21:04)
[2019-11-04] MEDS: traZODone HCL 50 MG TABLET (FP) PO SCH (21:04)
[2019-11-04] MEDS: MELATONIN 5 MG TABLETS PO SCH (21:05)
[2019-11-05] MEDS: ACETAMINOPHEN 325 MG TABLET (FP) PO PRN (06:07)
[2019-11-05] MEDS: METHOCARBAMOL 500 MG TABLET PO PRN (06:08)
[2019-11-05 06:50] VITALS: TEMP 98.2
[2019-11-05] MEDS: ALBUTEROL SO4 HFA INHALER IH PRN (08:43)
[2019-11-05] MEDS ORDERED: PT OWN MED DRAWER 7, Y5N ONE (08:45)
--- NOTE | 2019-11-05 08:56 | DS ---
[facility] Rehab Discharge Summary - [facility] Rehab Discharge Summary Admission Date: 10/24/19 Discharge Date: 11/05/19 - History Present History: Alcohol dependence, Cannabis dependence, Cocaine dependence Pertinent Past History: Asthma HTN GERD Hep C Perforated nasal septum - Discharge Physical Exam Vital Signs: Vital Signs Temperature 98.2 F 11/05/19 06:06 Pulse Rate 90 11/05/19 06:06 Respiratory Rate 20 11/05/19 06:06 Blood Pressure 106/71 11/05/19 06:06 O2 Sat by Pulse Oximetry (%) 100 11/05/19 06:06 alert o x 3 nad oob ambulating with steady gait cardiac:s1 s2,rrr lungs:ctab extremities;Active FROM , all limbs, no edema Skin:intact Pertinent Admission Physical Exam Findings: s/p detox - Treatment Discharge Condition: Discharge condition good, Rehabilitated safely, Responded well, Outpatient referral accepted Hospital Course: Pt completed Rehab and referred to CD aftercare to [facility] - Medication Discharge Medications: Ambulatory Orders RX: traZODone HCL [Desyrel -] 50 mg PO HS #30 tablet 11/04/19 RX: Albuterol Sulfate Inhaler - [Ventolin HFA Inhaler -] 2 inh PO Q4H PRN #1 inhaler 11/05/19 RX: Hydrochlorothiazide [Hctz -] 12.5 mg PO DAILY #14 cap 11/05/19 - Medication-Assisted Treatment (MAT) Medication-Assisted Treatment (MAT): No - Discharge Instructions Diet, activity, other medical instructions: Diet:RIO Activity: oob ad grace Other medical instructions:follow up with PCP Dr. Corea @ [address] for medical management. - Diagnosis (1) Alcohol dependence Status: Chronic Qualifiers: Substance use status: uncomplicated Qualified Code(s): F10.20 - Alcohol dependence, uncomplicated (2) Asthma Status: Chronic Qualifiers: Asthma severity: unspecified severity Asthma persistence: unspecified Asthma complication type: unspecified Qualified Code(s): J45.909 - Unspecified asthma, uncomplicated (3) Cocaine dependence, uncomplicated Status: Chronic (4) GERD (gastroesophageal reflux disease) Status: Chronic Qualifiers: Esophagitis presence: esophagitis presence not specified Qualified Code(s): K21.9 - Gastro-esophageal reflux disease without esophagitis (5) Hepatitis C Status: Chronic Qualifiers: Viral hepatitis chronicity: unspecified (6) Hypertension Status: Chronic Qualifiers: Hypertension type: essential hypertension Qualified Code(s): I10 - E ssential (primary) hypertension (7) Nicotine dependence, uncomplicated Status: Chronic Qualifiers: Nicotine product type: cigarettes Qualified Code(s): F17.210 - Nicotine dependence, cigarettes, uncomplicated (8) Perforated nasal septum Status: Chronic - Follow-up Referral Minutes to complete discharge: 25 - AMA Did Patient Leave Against Medical Advice: No Additional Comments: [facility] Rx for Hydrochlorothiazide 12.5 mg po daily #14 and Albuterol inhaler #1 electronically sent to pt's [facility] pharmacy to pick out hand.
[2019-11-05] MEDS: PRENATAL VITAMINS W/ FOLIC ACID TABLET (FP) PO SCH (09:02)
[2019-11-05] MEDS: HYDROCHLOROTHIAZIDE 12.5 MG CAPSULE (FP) PO SCH (09:02)
[2019-11-05] MEDS: FLUTICASONE PROP 0.05% 16 GM NASAL SPRAY NS SCH (09:03)
[2019-11-05] MEDS: NICOTINE 21 MG/24 HOURS TOPICAL PATCH TD SCH (09:03)
[2019-11-05] MEDS: CARBAMIDE PEROXIDE 6.5% OTIC 15 ML BOTTLE AS SCH (09:04)
[2019-11-05] MEDS: METHYL SALICYLATE/MENTHOL OINT 30 GM TUBE TP SCH (09:04)
[2019-11-05 09:35] VITALS: BP 115/75; PULSE 96
== END 2019-11-05 09:08 | disposition home or self-care (01) | DRG 772 ==
LOC: YASAS 11:51 → Y3E 11:52
PROVIDERS: ADMIT Allergy & Immunology; ATTEND Allergy & Immunology
PROC: HZ42ZZZ Group Counseling for Substance Abuse Treatment, Cognitive-Behavioral (ICD-10-PCS; principal; 2019-10-24)
DX: F10.20 Alcohol dependence, uncomplicated (principal); F14.20 Cocaine dependence, uncomplicated; F12.20 Cannabis dependence, uncomplicated; F17.210 Nicotine dependence, cigarettes, uncomplicated; F19.282 Other psychoactive substance dependence with psychoactive substance-induced sleep disorder; J45.909 Unspecified asthma, uncomplicated; K21.9 Gastro-esophageal reflux disease without esophagitis; B18.2 Chronic viral hepatitis C; J34.89 Other specified disorders of nose and nasal sinuses; M25.531 Pain in right wrist; G89.29 Other chronic pain; H61.22 Impacted cerumen, left ear

== ENCOUNTER 2020-07-20 11:29 | Inpatient (IN) | payer OTHER ==
[2020-07-20 12:36] VITALS: BMI 13.4
[2020-07-20] MEDS ORDERED: NICOTINE POLACRILEX 2 MG GUM BUC PRN (12:53)
[2020-07-20] MEDS ORDERED: MAG HYDROX/AL HYDROX/SIMETH 30 ML UNIT-DOSE CUP PO PRN (12:53)
[2020-07-20] MEDS ORDERED: ONDANSETRON *ODT* 4 MG TABLET SL PRN (12:53)
[2020-07-20] MEDS ORDERED: LORazepam 1 MG TABLET PO PRN (12:53)
[2020-07-20] MEDS ORDERED: ACETAMINOPHEN 325 MG TABLET (FP) PO PRN ×2 (12:53)
[2020-07-20] MEDS ORDERED: BISMUTH SUBSALICYLATE 524 MG/30 ML PO PRN (12:53)
[2020-07-20] MEDS ORDERED: MENTHOL/PHENOL 1 EACH UD MM PRN (12:53)
[2020-07-20] MEDS ORDERED: MAGNESIUM HYDROX 2400MG/30ML ORAL SUSPENSION 30 ML CUP PO PRN (12:53)
[2020-07-20] MEDS ORDERED: MAGNESIUM CITRATE 300 ML BOTTLE PO PRN (12:53)
[2020-07-20] MEDS ORDERED: ALBUTEROL SO4 HFA INHALER IH PRN (12:56)
[2020-07-20] MEDS ORDERED: hydrOXYzine PAMOATE 25 MG CAPSULE (FP) PO SCH (14:00)
[2020-07-20] MEDS ORDERED: hydrOXYzine PAMOATE 25 MG CAPSULE (FP) PO PRN (14:04)
[2020-07-20] MEDS: LORazepam 2 MG TABLET PO SCH ×3 (15:55→22:42)
[2020-07-20] MEDS: HYDROCHLOROTHIAZIDE 12.5 MG CAPSULE (FP) PO SCH (15:55)
[2020-07-20] MEDS: PRENATAL VITAMINS W/ FOLIC ACID TABLET (FP) PO SCH (15:56)
[2020-07-20] MEDS: IBUPROFEN 400 MG TABLET (FP) PO PRN (15:58)
[2020-07-20] MEDS: NICOTINE 14 MG/24 HOURS TOPICAL PATCH TD SCH (15:58)
[2020-07-20 17:30] LABS: HEMATOCRIT 44.3 % (32.4-45.2); HEMOGLOBIN 14.9 GM/dL (10.7-15.3); MCH 34.8 pg (25.7-33.7); MCHC 33.7 g/dl (32.0-36.0); MEAN CELL VOLUME 103.2 fl (80-96); MEAN PLT VOLUME 10.3 fl (7.5-11.1); PLATELET COUNT 166 K/MM3 (134-434); RBC 4.29 M/mm3 (3.60-5.2); RDW 14.4 % (11.6-15.6); WHITE BLOOD COUNT 3.6 K/mm3 (4.0-10.0)
[2020-07-20 17:31] LABS: CALCIUM 9.1 mg/dL (8.5-10.1)
[2020-07-20 17:33] LABS: ALBUMIN 3.8 g/dl (3.4-5.0)
[2020-07-20 17:35] LABS: BLOOD UREA NITROGEN 7.4 mg/dL (7-18)
[2020-07-20 17:37] LABS: BILIRUBIN,TOTAL 0.8 mg/dL (0.2-1); TOT PROT 7.7 g/dl (6.4-8.2)
[2020-07-20] MEDS: OFLOXACIN 0.3% OPHTHALMIC SOLUTION 5 ML BOTTLE OD SCH ×2 (17:38→22:40)
[2020-07-20] MEDS: prednisoLONE ACETATE 1% OPHTH SUSP 5 ML BOTTLE OU SCH ×2 (17:38→22:40)
[2020-07-20] MEDS: KETOROLAC TROMETHAMINE 0.5% EYE DROP 1 DROP DROPS OU SCH ×2 (17:38→22:42)
[2020-07-20] MEDS ORDERED: KETOCONAZOLE 2% CREAM - 60GM TUBE TP SCH (22:00)
[2020-07-20] MEDS: KETOCONAZOLE 2% TP SCH (22:41)
[2020-07-20] MEDS: THIAMINE HCL 100 MG TABLET (FP) PO SCH (22:41)
[2020-07-20] MEDS: BUDESONIDE/FORMETEROL FUMARATE 160/4.5 mcg INHALER IH SCH (22:41)
[2020-07-20] MEDS: MELATONIN 5 MG TABLETS PO SCH (22:41)
[2020-07-21] MEDS: CYPROHEPTADINE HCL 4 MG TABLET PO SCH ×3 (07:40→22:32)
[2020-07-21] MEDS: LORazepam 2 MG TABLET PO SCH ×4 (07:40→22:31)
[2020-07-21] MEDS: FOLIC ACID 1 MG TABLET (FP) PO SCH (10:11)
[2020-07-21] MEDS: PRENATAL VITAMINS W/ FOLIC ACID TABLET (FP) PO SCH (10:12)
[2020-07-21] MEDS: PATIENT'S OWN MEDICATION (NON-FORMULARY) (Glecaprevir/Pibrentasvir [Mavyret 100-40 Mg Tabl PO SCH (10:12)
[2020-07-21] MEDS: MONTELUKAST NA 10 MG TABLET PO SCH (10:12)
[2020-07-21] MEDS: HYDROCHLOROTHIAZIDE 12.5 MG CAPSULE (FP) PO SCH ×2 (10:13→10:15)
[2020-07-21] MEDS: OFLOXACIN 0.3% OPHTHALMIC SOLUTION 5 ML BOTTLE OD SCH ×4 (10:14→22:32)
[2020-07-21] MEDS: prednisoLONE ACETATE 1% OPHTH SUSP 5 ML BOTTLE OU SCH ×4 (10:15→22:32)
[2020-07-21] MEDS: TIOTROPIUM BROMIDE 2.5 MCG (SPIRIVA) RESPIMAT INHALER IH SCH (10:16)
[2020-07-21] MEDS: BUDESONIDE/FORMETEROL FUMARATE 160/4.5 mcg INHALER IH SCH ×2 (10:16→22:32)
[2020-07-21] MEDS: KETOROLAC TROMETHAMINE 0.5% EYE DROP 1 DROP DROPS OU SCH ×4 (10:17→22:31)
[2020-07-21] MEDS: NICOTINE 14 MG/24 HOURS TOPICAL PATCH TD SCH (10:18)
[2020-07-21] MEDS: VITAMIN B COMP W-C 1 EA TABLET (NEPHRO-VITE) PO SCH (10:18)
[2020-07-21] MEDS: KETOCONAZOLE 2% TP SCH ×2 (10:20→22:31)
[2020-07-21] MEDS: POTASSIUM CHLORIDE ORAL LIQUID 20 MEQ/15 ML PO SCH ×2 (10:21→22:32)
[2020-07-21] MEDS: MELATONIN 5 MG TABLETS PO SCH (22:31)
[2020-07-21] MEDS: THIAMINE HCL 100 MG TABLET (FP) PO SCH (22:32)
[2020-07-22] MEDS: LORazepam 1 MG TABLET PO SCH ×4 (08:02→22:31)
[2020-07-22] MEDS: CYPROHEPTADINE HCL 4 MG TABLET PO SCH ×3 (08:02→22:30)
[2020-07-22] MEDS: FOLIC ACID 1 MG TABLET (FP) PO SCH (11:14)
[2020-07-22] MEDS: PRENATAL VITAMINS W/ FOLIC ACID TABLET (FP) PO SCH (11:14)
[2020-07-22] MEDS: POTASSIUM CHLORIDE ORAL LIQUID 20 MEQ/15 ML PO SCH ×2 (11:15→22:31)
[2020-07-22] MEDS: MONTELUKAST NA 10 MG TABLET PO SCH (11:15)
[2020-07-22] MEDS: BUDESONIDE/FORMETEROL FUMARATE 160/4.5 mcg INHALER IH SCH ×2 (11:15→23:04)
[2020-07-22] MEDS: prednisoLONE ACETATE 1% OPHTH SUSP 5 ML BOTTLE OU SCH ×4 (11:15→22:30)
[2020-07-22] MEDS: KETOCONAZOLE 2% TP SCH ×2 (11:16→22:30)
[2020-07-22] MEDS: OFLOXACIN 0.3% OPHTHALMIC SOLUTION 5 ML BOTTLE OD SCH ×4 (11:16→22:30)
[2020-07-22] MEDS: PATIENT'S OWN MEDICATION (NON-FORMULARY) (Glecaprevir/Pibrentasvir [Mavyret 100-40 Mg Tabl PO SCH (11:17)
[2020-07-22] MEDS: NICOTINE 14 MG/24 HOURS TOPICAL PATCH TD SCH (11:17)
[2020-07-22] MEDS: HYDROCHLOROTHIAZIDE 12.5 MG CAPSULE (FP) PO SCH ×2 (11:18→11:19)
[2020-07-22] MEDS: VITAMIN B COMP W-C 1 EA TABLET (NEPHRO-VITE) PO SCH (11:20)
[2020-07-22] MEDS: TIOTROPIUM BROMIDE 2.5 MCG (SPIRIVA) RESPIMAT INHALER IH SCH (11:20)
[2020-07-22] MEDS: KETOROLAC TROMETHAMINE 0.5% EYE DROP 1 DROP DROPS OU SCH ×4 (11:20→22:32)
[2020-07-22] MEDS: IBUPROFEN 400 MG TABLET (FP) PO PRN (18:15)
[2020-07-22] MEDS: MELATONIN 5 MG TABLETS PO SCH (22:30)
[2020-07-22] MEDS: THIAMINE HCL 100 MG TABLET (FP) PO SCH (22:30)
[2020-07-23] MEDS ORDERED: LORazepam 0.5 MG TABLET PO PRN
[2020-07-23] MEDS: LORazepam 0.5 MG TABLET PO SCH ×4 (06:22→22:02)
[2020-07-23] MEDS: CYPROHEPTADINE HCL 4 MG TABLET PO SCH ×3 (06:23→22:01)
[2020-07-23] MEDS: METHOCARBAMOL 500 MG TABLET PO PRN ×2 (06:27→17:46)
[2020-07-23] MEDS: MONTELUKAST NA 10 MG TABLET PO SCH (10:46)
[2020-07-23] MEDS: HYDROCHLOROTHIAZIDE 12.5 MG CAPSULE (FP) PO SCH ×2 (10:46→10:47)
[2020-07-23] MEDS: POTASSIUM CHLORIDE ORAL LIQUID 20 MEQ/15 ML PO SCH ×2 (10:46→22:01)
[2020-07-23] MEDS: PRENATAL VITAMINS W/ FOLIC ACID TABLET (FP) PO SCH (10:46)
[2020-07-23] MEDS: FOLIC ACID 1 MG TABLET (FP) PO SCH (10:47)
[2020-07-23] MEDS: VITAMIN B COMP W-C 1 EA TABLET (NEPHRO-VITE) PO SCH (10:48)
[2020-07-23] MEDS: OFLOXACIN 0.3% OPHTHALMIC SOLUTION 5 ML BOTTLE OD SCH ×4 (10:48→22:58)
[2020-07-23] MEDS: prednisoLONE ACETATE 1% OPHTH SUSP 5 ML BOTTLE OU SCH ×4 (10:49→22:58)
[2020-07-23] MEDS: BUDESONIDE/FORMETEROL FUMARATE 160/4.5 mcg INHALER IH SCH ×2 (10:50→23:16)
[2020-07-23] MEDS: TIOTROPIUM BROMIDE 2.5 MCG (SPIRIVA) RESPIMAT INHALER IH SCH (10:51)
[2020-07-23] MEDS: KETOCONAZOLE 2% TP SCH ×2 (10:52→22:58)
[2020-07-23] MEDS: KETOROLAC TROMETHAMINE 0.5% EYE DROP 1 DROP DROPS OU SCH ×4 (10:52→22:58)
[2020-07-23] MEDS: PATIENT'S OWN MEDICATION (NON-FORMULARY) (Glecaprevir/Pibrentasvir [Mavyret 100-40 Mg Tabl PO SCH (10:53)
[2020-07-23] MEDS: NICOTINE 14 MG/24 HOURS TOPICAL PATCH TD SCH (11:00)
[2020-07-23] MEDS: IBUPROFEN 400 MG TABLET (FP) PO PRN (11:22)
[2020-07-23 16:07] LABS: SARS-CoV-2 NAA Not Detected (Not Detected)
[2020-07-23] MEDS: THIAMINE HCL 100 MG TABLET (FP) PO SCH (22:01)
[2020-07-23] MEDS: MELATONIN 5 MG TABLETS PO SCH (22:01)
[2020-07-24] MEDS ORDERED: LORazepam 0.5 MG TABLET PO ONE (05:00)
[2020-07-24] MEDS: METHOCARBAMOL 500 MG TABLET PO PRN (05:27)
[2020-07-24] MEDS: CYPROHEPTADINE HCL 4 MG TABLET PO SCH (05:30)
[2020-07-24] MEDS: PRENATAL VITAMINS W/ FOLIC ACID TABLET (FP) PO SCH (09:25)
[2020-07-24] MEDS: prednisoLONE ACETATE 1% OPHTH SUSP 5 ML BOTTLE OU SCH (09:25)
[2020-07-24] MEDS: OFLOXACIN 0.3% OPHTHALMIC SOLUTION 5 ML BOTTLE OD SCH (09:25)
[2020-07-24] MEDS: FOLIC ACID 1 MG TABLET (FP) PO SCH (09:26)
[2020-07-24] MEDS: HYDROCHLOROTHIAZIDE 12.5 MG CAPSULE (FP) PO SCH ×2 (09:26→09:28)
[2020-07-24] MEDS: MONTELUKAST NA 10 MG TABLET PO SCH (09:26)
[2020-07-24] MEDS: KETOROLAC TROMETHAMINE 0.5% EYE DROP 1 DROP DROPS OU SCH (09:26)
[2020-07-24] MEDS: VITAMIN B COMP W-C 1 EA TABLET (NEPHRO-VITE) PO SCH (09:27)
[2020-07-24] MEDS: POTASSIUM CHLORIDE ORAL LIQUID 20 MEQ/15 ML PO SCH (09:27)
[2020-07-24] MEDS: PATIENT'S OWN MEDICATION (NON-FORMULARY) (Glecaprevir/Pibrentasvir [Mavyret 100-40 Mg Tabl PO SCH (09:28)
[2020-07-24] MEDS: BUDESONIDE/FORMETEROL FUMARATE 160/4.5 mcg INHALER IH SCH (09:29)
[2020-07-24] MEDS: KETOCONAZOLE 2% TP SCH (09:29)
[2020-07-24] MEDS: TIOTROPIUM BROMIDE 2.5 MCG (SPIRIVA) RESPIMAT INHALER IH SCH (09:29)
[2020-07-24] MEDS: NICOTINE 14 MG/24 HOURS TOPICAL PATCH TD SCH (09:40)
[2020-07-24 09:53] VITALS: BP 90/65; PULSE 69; TEMP 96.9
== END 2020-07-24 13:12 | disposition other institution (70) | DRG 774 ==
LOC: YASAS 11:29 → Y3N 13:49
PROVIDERS: ADMIT Allergy & Immunology; ATTEND Allergy & Immunology
PROC: HZ2ZZZZ Detoxification Services for Substance Abuse Treatment (ICD-10-PCS; principal; 2020-07-20)
DX: F10.230 Alcohol dependence with withdrawal, uncomplicated (principal); F14.20 Cocaine dependence, uncomplicated; F12.10 Cannabis abuse, uncomplicated; F17.210 Nicotine dependence, cigarettes, uncomplicated; B18.2 Chronic viral hepatitis C; G47.00 Insomnia, unspecified; I10 Essential (primary) hypertension; J45.909 Unspecified asthma, uncomplicated; K21.9 Gastro-esophageal reflux disease without esophagitis; F32.9 Major depressive disorder, single episode, unspecified; Z63.4 Disappearance and death of family member
CPT/HCPCS: 36415; 80053; 85027; 86593; 86780; C9803; Q0162; U0003; U0005

== ENCOUNTER 2020-07-24 13:44 | Inpatient (IN) | payer OTHER ==
[2020-07-24] MEDS ORDERED: P-EPHED 60MG/TRIPROLIDI 2.5MG TABLET PO PRN (14:43)
[2020-07-24] MEDS ORDERED: MAGNESIUM CITRATE 300 ML BOTTLE PO PRN (14:43)
[2020-07-24] MEDS ORDERED: guaiFENesin 200 MG/10 ML 10 ML UNIT-DOSE CUPS PO PRN (14:43)
[2020-07-24] MEDS ORDERED: MAG HYDROX/AL HYDROX/SIMETH 30 ML UNIT-DOSE CUP PO PRN (14:43)
[2020-07-24] MEDS ORDERED: MENTHOL/PHENOL 1 EACH UD MM PRN (14:43)
[2020-07-24] MEDS ORDERED: LOPERAMIDE HCL 2 MG CAPSULE PO PRN (14:43)
[2020-07-24] MEDS ORDERED: NICOTINE POLACRILEX 2 MG GUM BUC PRN (14:43)
[2020-07-24] MEDS: hydrOXYzine PAMOATE 25 MG CAPSULE (FP) PO SCH ×2 (18:17→21:31)
[2020-07-24] MEDS: THIAMINE HCL 100 MG TABLET (FP) PO SCH (21:30)
[2020-07-24] MEDS: CYPROHEPTADINE HCL 4 MG TABLET PO SCH (21:31)
[2020-07-24] MEDS: BUDESONIDE/FORMETEROL FUMARATE 160/4.5 mcg INHALER IH SCH (21:32)
[2020-07-24] MEDS: ACETAMINOPHEN 325 MG TABLET (FP) PO PRN (21:47)
[2020-07-24] MEDS: KETOROLAC TROMETHAMINE 0.5% EYE DROP 1 DROP DROPS OS SCH (21:53)
[2020-07-24] MEDS: OFLOXACIN 0.3% OPHTHALMIC SOLUTION 5 ML BOTTLE OD SCH (21:54)
[2020-07-24] MEDS: prednisoLONE ACETATE 1% OPHTH SUSP 5 ML BOTTLE OD SCH (21:54)
[2020-07-24] MEDS ORDERED: KETOROLAC TROMETHAMINE 0.5% EYE DROP 1 DROP DROPS OP SCH ×2 (22:00)
[2020-07-24] MEDS ORDERED: OFLOXACIN 0.3% OPHTHALMIC SOLUTION 5 ML BOTTLE OP SCH ×2 (22:00)
[2020-07-24] MEDS ORDERED: PATIENT'S OWN MEDICATION (NON-FORMULARY) (Prednisolone Acetate/Pf [Prednisolone Acet 1% Ey OP SCH (22:00)
[2020-07-24] MEDS ORDERED: MELATONIN 5 MG TABLETS PO SCH (22:00)
[2020-07-25] MEDS: CYPROHEPTADINE HCL 4 MG TABLET PO SCH ×3 (06:23→21:13)
[2020-07-25] MEDS: hydrOXYzine PAMOATE 25 MG CAPSULE (FP) PO SCH ×5 (06:23→22:10)
[2020-07-25] MEDS ORDERED: PT OWN MED DRAWER 7, Y5N ONE (08:46)
[2020-07-25] MEDS: NICOTINE 7 MG/24 HOURS TOPICAL PATCH TD SCH (10:08)
[2020-07-25] MEDS: FOLIC ACID 1 MG TABLET (FP) PO SCH (10:08)
[2020-07-25] MEDS: MONTELUKAST NA 10 MG TABLET PO SCH (10:08)
[2020-07-25] MEDS: HYDROCHLOROTHIAZIDE 12.5 MG CAPSULE (FP) PO SCH (10:08)
[2020-07-25] MEDS: PRENATAL VITAMINS W/ FOLIC ACID TABLET (FP) PO SCH (10:09)
[2020-07-25] MEDS: BUDESONIDE/FORMETEROL FUMARATE 160/4.5 mcg INHALER IH SCH ×2 (10:09→21:13)
[2020-07-25] MEDS: TIOTROPIUM BROMIDE 2.5 MCG (SPIRIVA) RESPIMAT INHALER IH SCH (10:09)
[2020-07-25] MEDS: OFLOXACIN 0.3% OPHTHALMIC SOLUTION 5 ML BOTTLE OD SCH ×4 (10:33→21:13)
[2020-07-25] MEDS: prednisoLONE ACETATE 1% OPHTH SUSP 5 ML BOTTLE OD SCH ×4 (10:34→21:13)
[2020-07-25] MEDS: KETOROLAC TROMETHAMINE 0.5% EYE DROP 1 DROP DROPS OS SCH ×4 (10:35→21:14)
[2020-07-25 13:28] LABS: HIV INTERPRETATION NEGATIVE (NEGATIVE)
[2020-07-25] MEDS: METHOCARBAMOL 500 MG TABLET PO SCH ×2 (14:12→21:11)
[2020-07-25] MEDS: CITALOPRAM HYDROBROMIDE 10 MG TABLET PO SCH (15:21)
[2020-07-25] MEDS: THIAMINE HCL 100 MG TABLET (FP) PO SCH (21:11)
[2020-07-25] MEDS: SUVOREXANT 10 MG TABLET PO PRN (21:12)
[2020-07-26] MEDS: IBUPROFEN 400 MG TABLET (FP) PO PRN ×2 (06:30→21:26)
[2020-07-26] MEDS: hydrOXYzine PAMOATE 25 MG CAPSULE (FP) PO SCH ×5 (06:30→21:26)
[2020-07-26] MEDS: CYPROHEPTADINE HCL 4 MG TABLET PO SCH ×3 (06:30→21:25)
[2020-07-26] MEDS: METHOCARBAMOL 500 MG TABLET PO SCH ×3 (06:30→21:26)
[2020-07-26] MEDS: MAGNESIUM HYDROX 2400MG/30ML ORAL SUSPENSION 30 ML CUP PO PRN (06:30)
[2020-07-26] MEDS ORDERED: PT OWN MED DRAWER 7, Y5N ONE ×6 (06:57→16:02)
[2020-07-26] MEDS: FOLIC ACID 1 MG TABLET (FP) PO SCH (09:48)
[2020-07-26] MEDS: HYDROCHLOROTHIAZIDE 12.5 MG CAPSULE (FP) PO SCH (09:48)
[2020-07-26] MEDS: MONTELUKAST NA 10 MG TABLET PO SCH (09:48)
[2020-07-26] MEDS: CITALOPRAM HYDROBROMIDE 10 MG TABLET PO SCH (09:48)
[2020-07-26] MEDS: OFLOXACIN 0.3% OPHTHALMIC SOLUTION 5 ML BOTTLE OD SCH ×4 (09:50→21:28)
[2020-07-26] MEDS: BUDESONIDE/FORMETEROL FUMARATE 160/4.5 mcg INHALER IH SCH ×2 (09:51→21:26)
[2020-07-26] MEDS: prednisoLONE ACETATE 1% OPHTH SUSP 5 ML BOTTLE OD SCH ×4 (09:51→21:28)
[2020-07-26] MEDS: NICOTINE 7 MG/24 HOURS TOPICAL PATCH TD SCH (09:51)
[2020-07-26] MEDS: KETOROLAC TROMETHAMINE 0.5% EYE DROP 1 DROP DROPS OS SCH ×4 (09:51→21:28)
[2020-07-26] MEDS: TIOTROPIUM BROMIDE 2.5 MCG (SPIRIVA) RESPIMAT INHALER IH SCH (09:51)
[2020-07-26] MEDS: PRENATAL VITAMINS W/ FOLIC ACID TABLET (FP) PO SCH (09:51)
[2020-07-26] MEDS ORDERED: PATIENT'S OWN MEDICATION (NON-FORMULARY) (Glecaprevir/Pibrentasvir [Mavyret 100-40 Mg Tabl PO SCH (11:30)
[2020-07-26 11:33] LABS: ALBUMIN 3.1 g/dl (3.4-5.0); BLOOD UREA NITROGEN 15.6 mg/dL (7-18); CALCIUM 9.1 mg/dL (8.5-10.1)
[2020-07-26 11:36] LABS: CREATININE 0.6 mg/dL (0.55-1.3)
[2020-07-26 11:38] LABS: BILIRUBIN,TOTAL 0.4 mg/dL (0.2-1); TOT PROT 6.3 g/dl (6.4-8.2)
[2020-07-26] MEDS: PATIENT'S OWN MEDICATION (NON-FORMULARY) (Glecaprevir/Pibrentasvir [Mavyret 100-40 Mg Tabl PO SCH (16:02)
[2020-07-26] MEDS: THIAMINE HCL 100 MG TABLET (FP) PO SCH (21:25)
[2020-07-26] MEDS: SUVOREXANT 10 MG TABLET PO PRN (21:27)
[2020-07-27] MEDS ORDERED: PT OWN MED DRAWER 7, Y5N ONE ×2 (03:10→10:33)
[2020-07-27] MEDS: IBUPROFEN 400 MG TABLET (FP) PO PRN ×2 (06:17→21:17)
[2020-07-27] MEDS: hydrOXYzine PAMOATE 25 MG CAPSULE (FP) PO SCH ×5 (06:17→21:16)
[2020-07-27] MEDS: CYPROHEPTADINE HCL 4 MG TABLET PO SCH ×3 (06:17→21:16)
[2020-07-27] MEDS: METHOCARBAMOL 500 MG TABLET PO SCH ×3 (06:17→21:16)
[2020-07-27] MEDS ORDERED: SUVOREXANT 15 MG TABLET PO PRN (08:26)
[2020-07-27] MEDS ORDERED: PATIENT'S OWN MEDICATION (NON-FORMULARY) (Glecaprevir/Pibrentasvir [Mavyret 100-40 Mg Tabl PO SCH (10:04)
[2020-07-27] MEDS: MONTELUKAST NA 10 MG TABLET PO SCH (10:26)
[2020-07-27] MEDS: HYDROCHLOROTHIAZIDE 12.5 MG CAPSULE (FP) PO SCH (10:26)
[2020-07-27] MEDS: FOLIC ACID 1 MG TABLET (FP) PO SCH (10:26)
[2020-07-27] MEDS: CITALOPRAM HYDROBROMIDE 10 MG TABLET PO SCH (10:26)
[2020-07-27] MEDS: NICOTINE 7 MG/24 HOURS TOPICAL PATCH TD SCH (10:26)
[2020-07-27] MEDS: BUDESONIDE/FORMETEROL FUMARATE 160/4.5 mcg INHALER IH SCH ×2 (10:28→21:16)
[2020-07-27] MEDS: TIOTROPIUM BROMIDE 2.5 MCG (SPIRIVA) RESPIMAT INHALER IH SCH (10:28)
[2020-07-27] MEDS: OFLOXACIN 0.3% OPHTHALMIC SOLUTION 5 ML BOTTLE OD SCH ×4 (10:32→21:19)
[2020-07-27] MEDS: KETOROLAC TROMETHAMINE 0.5% EYE DROP 1 DROP DROPS OS SCH ×4 (10:32→21:19)
[2020-07-27] MEDS: prednisoLONE ACETATE 1% OPHTH SUSP 5 ML BOTTLE OD SCH ×4 (10:32→21:19)
[2020-07-27] MEDS: PATIENT'S OWN MEDICATION (NON-FORMULARY) (Glecaprevir/Pibrentasvir [Mavyret 100-40 Mg Tabl PO SCH ×2 (10:38→14:11)
[2020-07-27] MEDS: THIAMINE HCL 100 MG TABLET (FP) PO SCH (21:15)
[2020-07-27] MEDS: MAGNESIUM HYDROX 2400MG/30ML ORAL SUSPENSION 30 ML CUP PO PRN (21:17)
[2020-07-28] MEDS: hydrOXYzine PAMOATE 25 MG CAPSULE (FP) PO SCH ×5 (06:05→21:33)
[2020-07-28] MEDS: METHOCARBAMOL 500 MG TABLET PO SCH ×3 (06:05→21:33)
[2020-07-28] MEDS: IBUPROFEN 400 MG TABLET (FP) PO PRN ×3 (06:05→22:04)
[2020-07-28] MEDS: CYPROHEPTADINE HCL 4 MG TABLET PO SCH ×2 (06:05→16:30)
[2020-07-28] MEDS: MONTELUKAST NA 10 MG TABLET PO SCH (10:36)
[2020-07-28] MEDS: FOLIC ACID 1 MG TABLET (FP) PO SCH (10:36)
[2020-07-28] MEDS: CITALOPRAM HYDROBROMIDE 10 MG TABLET PO SCH (10:37)
[2020-07-28] MEDS: HYDROCHLOROTHIAZIDE 12.5 MG CAPSULE (FP) PO SCH (10:37)
[2020-07-28] MEDS: prednisoLONE ACETATE 1% OPHTH SUSP 5 ML BOTTLE OD SCH ×4 (11:02→21:35)
[2020-07-28] MEDS: KETOROLAC TROMETHAMINE 0.5% EYE DROP 1 DROP DROPS OS SCH ×4 (11:02→21:35)
[2020-07-28] MEDS: OFLOXACIN 0.3% OPHTHALMIC SOLUTION 5 ML BOTTLE OD SCH ×4 (11:02→21:35)
[2020-07-28] MEDS: NICOTINE 7 MG/24 HOURS TOPICAL PATCH TD SCH (11:03)
[2020-07-28] MEDS: BUDESONIDE/FORMETEROL FUMARATE 160/4.5 mcg INHALER IH SCH ×2 (11:05→21:33)
[2020-07-28] MEDS: TIOTROPIUM BROMIDE 2.5 MCG (SPIRIVA) RESPIMAT INHALER IH SCH (11:05)
[2020-07-28] MEDS ORDERED: PT OWN MED DRAWER 7, Y5N ONE (13:43)
[2020-07-28] MEDS: PATIENT'S OWN MEDICATION (NON-FORMULARY) (Glecaprevir/Pibrentasvir [Mavyret 100-40 Mg Tabl PO SCH (13:59)
[2020-07-28] MEDS: NICOTINE 21 MG/24 HOURS TOPICAL PATCH TD SCH (14:00)
[2020-07-28] MEDS: THIAMINE HCL 100 MG TABLET (FP) PO SCH (21:34)
[2020-07-28] MEDS: SUVOREXANT 20 MG TABLET PO PRN (21:34)
[2020-07-29] MEDS: hydrOXYzine PAMOATE 25 MG CAPSULE (FP) PO SCH ×5 (06:20→21:08)
[2020-07-29] MEDS: METHOCARBAMOL 500 MG TABLET PO SCH ×3 (06:20→21:08)
[2020-07-29] MEDS: CYPROHEPTADINE HCL 4 MG TABLET PO SCH ×3 (06:20→17:03)
[2020-07-29] MEDS: HYDROCHLOROTHIAZIDE 12.5 MG CAPSULE (FP) PO SCH (09:48)
[2020-07-29] MEDS: FOLIC ACID 1 MG TABLET (FP) PO SCH (09:48)
[2020-07-29] MEDS: MONTELUKAST NA 10 MG TABLET PO SCH (09:48)
[2020-07-29] MEDS: CITALOPRAM HYDROBROMIDE 10 MG TABLET PO SCH (09:48)
[2020-07-29] MEDS: prednisoLONE ACETATE 1% OPHTH SUSP 5 ML BOTTLE OD SCH ×4 (09:51→21:09)
[2020-07-29] MEDS: OFLOXACIN 0.3% OPHTHALMIC SOLUTION 5 ML BOTTLE OD SCH ×4 (09:51→21:10)
[2020-07-29] MEDS: NICOTINE 21 MG/24 HOURS TOPICAL PATCH TD SCH (09:52)
[2020-07-29] MEDS: KETOROLAC TROMETHAMINE 0.5% EYE DROP 1 DROP DROPS OS SCH ×4 (09:52→21:10)
[2020-07-29] MEDS: BUDESONIDE/FORMETEROL FUMARATE 160/4.5 mcg INHALER IH SCH ×2 (09:53→21:09)
[2020-07-29] MEDS: TIOTROPIUM BROMIDE 2.5 MCG (SPIRIVA) RESPIMAT INHALER IH SCH (09:53)
[2020-07-29] MEDS ORDERED: PT OWN MED DRAWER 7, Y5N ONE (13:07)
[2020-07-29] MEDS: PATIENT'S OWN MEDICATION (NON-FORMULARY) (Glecaprevir/Pibrentasvir [Mavyret 100-40 Mg Tabl PO SCH (13:07)
[2020-07-29] MEDS: PRENATAL VITAMINS W/ FOLIC ACID TABLET (FP) PO SCH (15:17)
[2020-07-29] MEDS: THIAMINE HCL 100 MG TABLET (FP) PO SCH (21:08)
[2020-07-29] MEDS: SUVOREXANT 20 MG TABLET PO PRN (21:09)
[2020-07-30] MEDS: CYPROHEPTADINE HCL 4 MG TABLET PO SCH ×3 (06:08→16:24)
[2020-07-30] MEDS: IBUPROFEN 400 MG TABLET (FP) PO PRN ×2 (06:08→22:16)
[2020-07-30] MEDS: hydrOXYzine PAMOATE 25 MG CAPSULE (FP) PO SCH ×5 (06:08→22:14)
[2020-07-30] MEDS: METHOCARBAMOL 500 MG TABLET PO SCH ×3 (06:08→22:14)
[2020-07-30] MEDS: NICOTINE 21 MG/24 HOURS TOPICAL PATCH TD SCH (09:36)
[2020-07-30] MEDS: PRENATAL VITAMINS W/ FOLIC ACID TABLET (FP) PO SCH (09:37)
[2020-07-30] MEDS: HYDROCHLOROTHIAZIDE 12.5 MG CAPSULE (FP) PO SCH (09:37)
[2020-07-30] MEDS: MONTELUKAST NA 10 MG TABLET PO SCH (09:37)
[2020-07-30] MEDS: CITALOPRAM HYDROBROMIDE 10 MG TABLET PO SCH (09:37)
[2020-07-30] MEDS: FOLIC ACID 1 MG TABLET (FP) PO SCH (09:38)
[2020-07-30] MEDS: ACETAMINOPHEN 325 MG TABLET (FP) PO PRN (09:39)
[2020-07-30] MEDS: prednisoLONE ACETATE 1% OPHTH SUSP 5 ML BOTTLE OD SCH ×4 (10:30→22:16)
[2020-07-30] MEDS: OFLOXACIN 0.3% OPHTHALMIC SOLUTION 5 ML BOTTLE OD SCH ×4 (10:30→22:16)
[2020-07-30] MEDS: KETOROLAC TROMETHAMINE 0.5% EYE DROP 1 DROP DROPS OS SCH ×4 (10:31→22:16)
[2020-07-30] MEDS: TIOTROPIUM BROMIDE 2.5 MCG (SPIRIVA) RESPIMAT INHALER IH SCH (10:31)
[2020-07-30] MEDS: BUDESONIDE/FORMETEROL FUMARATE 160/4.5 mcg INHALER IH SCH ×2 (10:31→22:16)
[2020-07-30] MEDS ORDERED: PT OWN MED DRAWER 7, Y5N ONE ×2 (11:55→13:22)
[2020-07-30] MEDS: PATIENT'S OWN MEDICATION (NON-FORMULARY) (Glecaprevir/Pibrentasvir [Mavyret 100-40 Mg Tabl PO SCH (12:55)
[2020-07-30] MEDS: THIAMINE HCL 100 MG TABLET (FP) PO SCH (22:14)
[2020-07-30] MEDS: SUVOREXANT 20 MG TABLET PO PRN (22:15)
[2020-07-31] MEDS: METHOCARBAMOL 500 MG TABLET PO SCH ×3 (06:30→21:08)
[2020-07-31] MEDS: hydrOXYzine PAMOATE 25 MG CAPSULE (FP) PO SCH ×5 (06:30→21:08)
[2020-07-31] MEDS: IBUPROFEN 400 MG TABLET (FP) PO PRN ×2 (06:30→21:10)
[2020-07-31] MEDS: CYPROHEPTADINE HCL 4 MG TABLET PO SCH ×3 (06:30→16:20)
[2020-07-31] MEDS: MONTELUKAST NA 10 MG TABLET PO SCH (10:10)
[2020-07-31] MEDS: PRENATAL VITAMINS W/ FOLIC ACID TABLET (FP) PO SCH (10:10)
[2020-07-31] MEDS: KETOROLAC TROMETHAMINE 0.5% EYE DROP 1 DROP DROPS OS SCH ×5 (10:11→21:08)
[2020-07-31] MEDS: FOLIC ACID 1 MG TABLET (FP) PO SCH (10:11)
[2020-07-31] MEDS: HYDROCHLOROTHIAZIDE 12.5 MG CAPSULE (FP) PO SCH (10:11)
[2020-07-31] MEDS: CITALOPRAM HYDROBROMIDE 10 MG TABLET PO SCH (10:11)
[2020-07-31] MEDS: NICOTINE 21 MG/24 HOURS TOPICAL PATCH TD SCH (10:12)
[2020-07-31] MEDS: TIOTROPIUM BROMIDE 2.5 MCG (SPIRIVA) RESPIMAT INHALER IH SCH (10:27)
[2020-07-31] MEDS: BUDESONIDE/FORMETEROL FUMARATE 160/4.5 mcg INHALER IH SCH ×2 (10:27→21:08)
[2020-07-31] MEDS: OFLOXACIN 0.3% OPHTHALMIC SOLUTION 5 ML BOTTLE OD SCH ×4 (10:30→21:08)
[2020-07-31] MEDS: prednisoLONE ACETATE 1% OPHTH SUSP 5 ML BOTTLE OD SCH ×4 (10:31→21:08)
[2020-07-31] MEDS: PATIENT'S OWN MEDICATION (NON-FORMULARY) (Glecaprevir/Pibrentasvir [Mavyret 100-40 Mg Tabl PO SCH (13:03)
[2020-07-31] MEDS ORDERED: PT OWN MED DRAWER 7, Y5N ONE ×3 (13:03→14:16)
[2020-07-31] MEDS: ALBUTEROL SO4 HFA INHALER IH PRN (14:17)
[2020-07-31] MEDS: THIAMINE HCL 100 MG TABLET (FP) PO SCH (21:08)
[2020-07-31] MEDS: SUVOREXANT 10 MG TABLET PO PRN (21:09)
[2020-08-01] MEDS: ACETAMINOPHEN 325 MG TABLET (FP) PO PRN (05:09)
[2020-08-01] MEDS: METHOCARBAMOL 500 MG TABLET PO SCH ×3 (06:15→21:40)
[2020-08-01] MEDS: CYPROHEPTADINE HCL 4 MG TABLET PO SCH ×3 (06:15→17:09)
[2020-08-01] MEDS: hydrOXYzine PAMOATE 25 MG CAPSULE (FP) PO SCH ×5 (06:15→21:40)
[2020-08-01] MEDS: CITALOPRAM HYDROBROMIDE 10 MG TABLET PO SCH (10:06)
[2020-08-01] MEDS: MONTELUKAST NA 10 MG TABLET PO SCH (10:20)
[2020-08-01] MEDS: PRENATAL VITAMINS W/ FOLIC ACID TABLET (FP) PO SCH (10:20)
[2020-08-01] MEDS: FOLIC ACID 1 MG TABLET (FP) PO SCH (10:20)
[2020-08-01] MEDS: HYDROCHLOROTHIAZIDE 12.5 MG CAPSULE (FP) PO SCH (10:21)
[2020-08-01] MEDS: TIOTROPIUM BROMIDE 2.5 MCG (SPIRIVA) RESPIMAT INHALER IH SCH (10:23)
[2020-08-01] MEDS: BUDESONIDE/FORMETEROL FUMARATE 160/4.5 mcg INHALER IH SCH ×2 (10:23→21:41)
[2020-08-01] MEDS: KETOROLAC TROMETHAMINE 0.5% EYE DROP 1 DROP DROPS OS SCH ×4 (10:45→21:41)
[2020-08-01] MEDS: NICOTINE 21 MG/24 HOURS TOPICAL PATCH TD SCH (10:45)
[2020-08-01] MEDS: prednisoLONE ACETATE 1% OPHTH SUSP 5 ML BOTTLE OD SCH ×4 (10:45→21:41)
[2020-08-01] MEDS: OFLOXACIN 0.3% OPHTHALMIC SOLUTION 5 ML BOTTLE OD SCH ×4 (10:45→21:41)
[2020-08-01] MEDS: PATIENT'S OWN MEDICATION (NON-FORMULARY) (Glecaprevir/Pibrentasvir [Mavyret 100-40 Mg Tabl PO SCH (12:02)
[2020-08-01] MEDS ORDERED: PT OWN MED DRAWER 7, Y5N ONE ×2 (13:29→14:15)
[2020-08-01] MEDS: SUVOREXANT 10 MG TABLET PO PRN (21:39)
[2020-08-01] MEDS: ALBUTEROL SO4 HFA INHALER IH PRN (21:39)
[2020-08-01] MEDS: THIAMINE HCL 100 MG TABLET (FP) PO SCH (21:40)
[2020-08-01] MEDS: IBUPROFEN 400 MG TABLET (FP) PO PRN (22:28)
[2020-08-02] MEDS: IBUPROFEN 400 MG TABLET (FP) PO PRN ×2 (06:28→21:04)
[2020-08-02] MEDS: CYPROHEPTADINE HCL 4 MG TABLET PO SCH ×3 (06:29→16:58)
[2020-08-02] MEDS: hydrOXYzine PAMOATE 25 MG CAPSULE (FP) PO SCH ×5 (06:29→21:02)
[2020-08-02] MEDS: METHOCARBAMOL 500 MG TABLET PO SCH ×3 (06:29→21:02)
[2020-08-02] MEDS: FOLIC ACID 1 MG TABLET (FP) PO SCH (09:47)
[2020-08-02] MEDS: MONTELUKAST NA 10 MG TABLET PO SCH (09:47)
[2020-08-02] MEDS: CITALOPRAM HYDROBROMIDE 10 MG TABLET PO SCH (09:47)
[2020-08-02] MEDS: HYDROCHLOROTHIAZIDE 12.5 MG CAPSULE (FP) PO SCH (09:47)
[2020-08-02] MEDS: KETOROLAC TROMETHAMINE 0.5% EYE DROP 1 DROP DROPS OS SCH ×4 (09:49→21:33)
[2020-08-02] MEDS: OFLOXACIN 0.3% OPHTHALMIC SOLUTION 5 ML BOTTLE OD SCH ×4 (09:49→21:33)
[2020-08-02] MEDS: prednisoLONE ACETATE 1% OPHTH SUSP 5 ML BOTTLE OD SCH ×4 (09:50→21:33)
[2020-08-02] MEDS: ALBUTEROL SO4 HFA INHALER IH PRN ×2 (09:50→20:35)
[2020-08-02] MEDS: PRENATAL VITAMINS W/ FOLIC ACID TABLET (FP) PO SCH (10:32)
[2020-08-02] MEDS: NICOTINE 21 MG/24 HOURS TOPICAL PATCH TD SCH (10:35)
[2020-08-02] MEDS: TIOTROPIUM BROMIDE 2.5 MCG (SPIRIVA) RESPIMAT INHALER IH SCH (10:43)
[2020-08-02] MEDS: BUDESONIDE/FORMETEROL FUMARATE 160/4.5 mcg INHALER IH SCH ×2 (10:43→21:41)
[2020-08-02] MEDS: PATIENT'S OWN MEDICATION (NON-FORMULARY) (Glecaprevir/Pibrentasvir [Mavyret 100-40 Mg Tabl PO SCH (12:30)
[2020-08-02] MEDS ORDERED: PT OWN MED DRAWER 7, Y5N ONE (13:31)
[2020-08-02] MEDS ORDERED: ALBUTEROL SULFATE 2 MG/5 ML SOLUTION PO ONE (20:48)
[2020-08-02] MEDS: THIAMINE HCL 100 MG TABLET (FP) PO SCH (21:02)
[2020-08-02] MEDS: SUVOREXANT 10 MG TABLET PO PRN (21:02)
[2020-08-03] MEDS: IBUPROFEN 400 MG TABLET (FP) PO PRN ×2 (05:00→10:11)
[2020-08-03] MEDS: CYPROHEPTADINE HCL 4 MG TABLET PO SCH ×3 (06:33→16:40)
[2020-08-03] MEDS: METHOCARBAMOL 500 MG TABLET PO SCH ×3 (06:33→21:03)
[2020-08-03] MEDS: hydrOXYzine PAMOATE 25 MG CAPSULE (FP) PO SCH ×5 (06:33→21:03)
[2020-08-03] MEDS ORDERED: ALBUTEROL SO4 0.083% IH SOL 2.5 MG/3 ML VIAL.NEB. NEB PRN (09:30)
[2020-08-03] MEDS ORDERED: PT OWN MED DRAWER 7, Y5N ONE ×4 (09:36→12:37)
[2020-08-03] MEDS: PRENATAL VITAMINS W/ FOLIC ACID TABLET (FP) PO SCH (10:08)
[2020-08-03] MEDS: MONTELUKAST NA 10 MG TABLET PO SCH (10:08)
[2020-08-03] MEDS: HYDROCHLOROTHIAZIDE 12.5 MG CAPSULE (FP) PO SCH (10:09)
[2020-08-03] MEDS: KETOROLAC TROMETHAMINE 0.5% EYE DROP 1 DROP DROPS OS SCH ×4 (10:10→21:05)
[2020-08-03] MEDS: FOLIC ACID 1 MG TABLET (FP) PO SCH (10:10)
[2020-08-03] MEDS: CITALOPRAM HYDROBROMIDE 10 MG TABLET PO SCH (10:10)
[2020-08-03] MEDS: TIOTROPIUM BROMIDE 2.5 MCG (SPIRIVA) RESPIMAT INHALER IH SCH (10:10)
[2020-08-03] MEDS: BUDESONIDE/FORMETEROL FUMARATE 160/4.5 mcg INHALER IH SCH ×2 (10:10→21:05)
[2020-08-03] MEDS: OFLOXACIN 0.3% OPHTHALMIC SOLUTION 5 ML BOTTLE OD SCH ×4 (10:14→21:05)
[2020-08-03] MEDS: NICOTINE 7 MG/24 HOURS TOPICAL PATCH TD SCH (10:14)
[2020-08-03] MEDS: prednisoLONE ACETATE 1% OPHTH SUSP 5 ML BOTTLE OD SCH ×4 (10:44→21:05)
[2020-08-03] MEDS: PATIENT'S OWN MEDICATION (NON-FORMULARY) (Glecaprevir/Pibrentasvir [Mavyret 100-40 Mg Tabl PO SCH (12:37)
[2020-08-03] MEDS ORDERED: SIMETHICONE 80 MG TAB.CHEW (FP) PO PRN (13:15)
[2020-08-03] MEDS: ALBUTEROL SO4 HFA INHALER IH PRN (14:39)
[2020-08-03] MEDS: THIAMINE HCL 100 MG TABLET (FP) PO SCH (21:03)
[2020-08-03] MEDS: SUVOREXANT 20 MG TABLET PO PRN (21:04)
[2020-08-04] MEDS: METHOCARBAMOL 500 MG TABLET PO SCH ×3 (06:02→21:21)
[2020-08-04] MEDS: hydrOXYzine PAMOATE 25 MG CAPSULE (FP) PO SCH ×5 (06:02→21:21)
[2020-08-04] MEDS: CYPROHEPTADINE HCL 4 MG TABLET PO SCH ×3 (06:02→17:05)
[2020-08-04] MEDS: IBUPROFEN 400 MG TABLET (FP) PO PRN (06:02)
[2020-08-04] MEDS: PRENATAL VITAMINS W/ FOLIC ACID TABLET (FP) PO SCH (10:07)
[2020-08-04] MEDS: MONTELUKAST NA 10 MG TABLET PO SCH (10:08)
[2020-08-04] MEDS: FOLIC ACID 1 MG TABLET (FP) PO SCH (10:08)
[2020-08-04] MEDS: CITALOPRAM HYDROBROMIDE 10 MG TABLET PO SCH (10:08)
[2020-08-04] MEDS: BUDESONIDE/FORMETEROL FUMARATE 160/4.5 mcg INHALER IH SCH ×2 (10:09→21:22)
[2020-08-04] MEDS: NICOTINE 7 MG/24 HOURS TOPICAL PATCH TD SCH (10:09)
[2020-08-04] MEDS: HYDROCHLOROTHIAZIDE 12.5 MG CAPSULE (FP) PO SCH (10:09)
[2020-08-04] MEDS: TIOTROPIUM BROMIDE 2.5 MCG (SPIRIVA) RESPIMAT INHALER IH SCH (10:09)
[2020-08-04] MEDS: prednisoLONE ACETATE 1% OPHTH SUSP 5 ML BOTTLE OD SCH ×4 (10:47→21:22)
[2020-08-04] MEDS: KETOROLAC TROMETHAMINE 0.5% EYE DROP 1 DROP DROPS OS SCH ×4 (10:48→21:22)
[2020-08-04] MEDS ORDERED: PT OWN MED DRAWER 7, Y5N ONE ×2 (10:50→12:59)
[2020-08-04] MEDS: OFLOXACIN 0.3% OPHTHALMIC SOLUTION 5 ML BOTTLE OD SCH ×4 (10:51→21:22)
[2020-08-04] MEDS: PATIENT'S OWN MEDICATION (NON-FORMULARY) (Glecaprevir/Pibrentasvir [Mavyret 100-40 Mg Tabl PO SCH (12:59)
[2020-08-04] MEDS: THIAMINE HCL 100 MG TABLET (FP) PO SCH (21:21)
[2020-08-04] MEDS: SUVOREXANT 20 MG TABLET PO PRN (21:21)
[2020-08-05] MEDS ORDERED: PT OWN MED DRAWER 7, Y5N ONE ×3 (00:58→17:07)
[2020-08-05] MEDS: hydrOXYzine PAMOATE 25 MG CAPSULE (FP) PO SCH ×5 (06:13→21:09)
[2020-08-05] MEDS: METHOCARBAMOL 500 MG TABLET PO SCH ×3 (06:13→21:09)
[2020-08-05] MEDS: IBUPROFEN 400 MG TABLET (FP) PO PRN ×3 (06:13→21:10)
[2020-08-05] MEDS: CYPROHEPTADINE HCL 4 MG TABLET PO SCH ×3 (06:13→17:11)
[2020-08-05] MEDS: CITALOPRAM HYDROBROMIDE 10 MG TABLET PO SCH (10:14)
[2020-08-05] MEDS: MONTELUKAST NA 10 MG TABLET PO SCH (10:14)
[2020-08-05] MEDS: PRENATAL VITAMINS W/ FOLIC ACID TABLET (FP) PO SCH (10:14)
[2020-08-05] MEDS: HYDROCHLOROTHIAZIDE 12.5 MG CAPSULE (FP) PO SCH (10:14)
[2020-08-05] MEDS: FOLIC ACID 1 MG TABLET (FP) PO SCH (10:15)
[2020-08-05] MEDS: TIOTROPIUM BROMIDE 2.5 MCG (SPIRIVA) RESPIMAT INHALER IH SCH (10:15)
[2020-08-05] MEDS: BUDESONIDE/FORMETEROL FUMARATE 160/4.5 mcg INHALER IH SCH ×2 (10:15→21:10)
[2020-08-05] MEDS: ALBUTEROL SO4 HFA INHALER IH PRN (10:16)
[2020-08-05] MEDS: OFLOXACIN 0.3% OPHTHALMIC SOLUTION 5 ML BOTTLE OD SCH ×4 (10:23→21:10)
[2020-08-05] MEDS: KETOROLAC TROMETHAMINE 0.5% EYE DROP 1 DROP DROPS OS SCH ×4 (10:24→21:10)
[2020-08-05] MEDS: NICOTINE 7 MG/24 HOURS TOPICAL PATCH TD SCH (10:24)
[2020-08-05] MEDS: prednisoLONE ACETATE 1% OPHTH SUSP 5 ML BOTTLE OD SCH ×4 (10:25→21:10)
[2020-08-05] MEDS: PATIENT'S OWN MEDICATION (NON-FORMULARY) (Glecaprevir/Pibrentasvir [Mavyret 100-40 Mg Tabl PO SCH (12:18)
[2020-08-05] MEDS: SUVOREXANT 20 MG TABLET PO PRN (21:10)
[2020-08-05] MEDS: THIAMINE HCL 100 MG TABLET (FP) PO SCH (21:37)
[2020-08-06] MEDS: IBUPROFEN 400 MG TABLET (FP) PO PRN ×2 (06:06→21:34)
[2020-08-06] MEDS: hydrOXYzine PAMOATE 25 MG CAPSULE (FP) PO SCH ×5 (06:07→21:33)
[2020-08-06] MEDS: METHOCARBAMOL 500 MG TABLET PO SCH ×3 (06:07→21:33)
[2020-08-06] MEDS: ALBUTEROL SO4 HFA INHALER IH PRN (06:08)
[2020-08-06] MEDS: CYPROHEPTADINE HCL 4 MG TABLET PO SCH ×3 (08:47→17:37)
[2020-08-06] MEDS: OFLOXACIN 0.3% OPHTHALMIC SOLUTION 5 ML BOTTLE OD SCH ×4 (10:09→23:22)
[2020-08-06] MEDS: HYDROCHLOROTHIAZIDE 12.5 MG CAPSULE (FP) PO SCH (10:19)
[2020-08-06] MEDS: MONTELUKAST NA 10 MG TABLET PO SCH (10:19)
[2020-08-06] MEDS: PRENATAL VITAMINS W/ FOLIC ACID TABLET (FP) PO SCH (10:19)
[2020-08-06] MEDS: NICOTINE 7 MG/24 HOURS TOPICAL PATCH TD SCH (10:19)
[2020-08-06] MEDS: CITALOPRAM HYDROBROMIDE 10 MG TABLET PO SCH (10:19)
[2020-08-06] MEDS: FOLIC ACID 1 MG TABLET (FP) PO SCH (10:19)
[2020-08-06] MEDS: prednisoLONE ACETATE 1% OPHTH SUSP 5 ML BOTTLE OD SCH ×4 (10:23→23:22)
[2020-08-06] MEDS: KETOROLAC TROMETHAMINE 0.5% EYE DROP 1 DROP DROPS OS SCH ×4 (10:23→23:22)
[2020-08-06] MEDS: BUDESONIDE/FORMETEROL FUMARATE 160/4.5 mcg INHALER IH SCH ×2 (10:33→23:22)
[2020-08-06] MEDS: TIOTROPIUM BROMIDE 2.5 MCG (SPIRIVA) RESPIMAT INHALER IH SCH (10:33)
[2020-08-06] MEDS ORDERED: PT OWN MED DRAWER 7, Y5N ONE (10:47)
[2020-08-06] MEDS: PATIENT'S OWN MEDICATION (NON-FORMULARY) (Glecaprevir/Pibrentasvir [Mavyret 100-40 Mg Tabl PO SCH (15:10)
[2020-08-06] MEDS: SUVOREXANT 20 MG TABLET PO PRN (21:00)
[2020-08-06] MEDS: THIAMINE HCL 100 MG TABLET (FP) PO SCH (21:34)
[2020-08-07] MEDS: IBUPROFEN 400 MG TABLET (FP) PO PRN ×2 (06:15→21:13)
[2020-08-07] MEDS: CYPROHEPTADINE HCL 4 MG TABLET PO SCH ×3 (06:33→16:49)
[2020-08-07] MEDS: METHOCARBAMOL 500 MG TABLET PO SCH ×3 (06:33→21:11)
[2020-08-07] MEDS: hydrOXYzine PAMOATE 25 MG CAPSULE (FP) PO SCH ×5 (06:33→21:11)
[2020-08-07] MEDS: BUDESONIDE/FORMETEROL FUMARATE 160/4.5 mcg INHALER IH SCH ×2 (09:34→21:12)
[2020-08-07] MEDS: CITALOPRAM HYDROBROMIDE 10 MG TABLET PO SCH (09:34)
[2020-08-07] MEDS: FOLIC ACID 1 MG TABLET (FP) PO SCH (09:34)
[2020-08-07] MEDS: PRENATAL VITAMINS W/ FOLIC ACID TABLET (FP) PO SCH (09:34)
[2020-08-07] MEDS: MONTELUKAST NA 10 MG TABLET PO SCH (09:34)
[2020-08-07] MEDS: HYDROCHLOROTHIAZIDE 12.5 MG CAPSULE (FP) PO SCH (09:34)
[2020-08-07] MEDS: TIOTROPIUM BROMIDE 2.5 MCG (SPIRIVA) RESPIMAT INHALER IH SCH (09:35)
[2020-08-07] MEDS: KETOROLAC TROMETHAMINE 0.5% EYE DROP 1 DROP DROPS OS SCH ×4 (09:36→23:20)
[2020-08-07] MEDS: prednisoLONE ACETATE 1% OPHTH SUSP 5 ML BOTTLE OD SCH ×4 (09:36→23:20)
[2020-08-07] MEDS: OFLOXACIN 0.3% OPHTHALMIC SOLUTION 5 ML BOTTLE OD SCH ×4 (09:36→23:20)
[2020-08-07] MEDS: NICOTINE 7 MG/24 HOURS TOPICAL PATCH TD SCH (09:36)
[2020-08-07] MEDS: PATIENT'S OWN MEDICATION (NON-FORMULARY) (Glecaprevir/Pibrentasvir [Mavyret 100-40 Mg Tabl PO SCH (12:01)
[2020-08-07] MEDS ORDERED: SUVOREXANT 10 MG TABLET PO PRN (19:37)
[2020-08-07] MEDS: THIAMINE HCL 100 MG TABLET (FP) PO SCH (21:11)
[2020-08-08] MEDS: METHOCARBAMOL 500 MG TABLET PO SCH (06:34)
[2020-08-08] MEDS: IBUPROFEN 400 MG TABLET (FP) PO PRN (06:34)
[2020-08-08] MEDS: hydrOXYzine PAMOATE 25 MG CAPSULE (FP) PO SCH ×2 (06:34→09:42)
[2020-08-08] MEDS: CYPROHEPTADINE HCL 4 MG TABLET PO SCH (06:34)
[2020-08-08 07:19] VITALS: BP 110/60; PULSE 80; TEMP 97.1
[2020-08-08] MEDS ORDERED: PT OWN MED DRAWER 7, Y5N ONE (09:06)
[2020-08-08] MEDS: PRENATAL VITAMINS W/ FOLIC ACID TABLET (FP) PO SCH (09:43)
[2020-08-08] MEDS: HYDROCHLOROTHIAZIDE 12.5 MG CAPSULE (FP) PO SCH (09:43)
[2020-08-08] MEDS: FOLIC ACID 1 MG TABLET (FP) PO SCH (09:43)
[2020-08-08] MEDS: KETOROLAC TROMETHAMINE 0.5% EYE DROP 1 DROP DROPS OS SCH (09:44)
[2020-08-08] MEDS: NICOTINE 7 MG/24 HOURS TOPICAL PATCH TD SCH (09:44)
[2020-08-08] MEDS: CITALOPRAM HYDROBROMIDE 10 MG TABLET PO SCH (09:44)
[2020-08-08] MEDS: TIOTROPIUM BROMIDE 2.5 MCG (SPIRIVA) RESPIMAT INHALER IH SCH (09:46)
[2020-08-08] MEDS: MONTELUKAST NA 10 MG TABLET PO SCH (09:46)
[2020-08-08] MEDS: BUDESONIDE/FORMETEROL FUMARATE 160/4.5 mcg INHALER IH SCH (09:46)
[2020-08-08] MEDS: prednisoLONE ACETATE 1% OPHTH SUSP 5 ML BOTTLE OD SCH (09:46)
[2020-08-08] MEDS: OFLOXACIN 0.3% OPHTHALMIC SOLUTION 5 ML BOTTLE OD SCH (09:46)
== END 2020-08-08 09:53 | disposition home or self-care (01) | DRG 772 ==
LOC: YASAS 13:44 → Y3W 13:46
PROVIDERS: ADMIT Allergy & Immunology; ATTEND Allergy & Immunology
PROC: HZ42ZZZ Group Counseling for Substance Abuse Treatment, Cognitive-Behavioral (ICD-10-PCS; principal; 2020-07-24)
DX: F10.20 Alcohol dependence, uncomplicated (principal); F14.20 Cocaine dependence, uncomplicated; F17.210 Nicotine dependence, cigarettes, uncomplicated; F19.282 Other psychoactive substance dependence with psychoactive substance-induced sleep disorder; F19.24 Other psychoactive substance dependence with psychoactive substance-induced mood disorder; I10 Essential (primary) hypertension; J45.909 Unspecified asthma, uncomplicated; K21.9 Gastro-esophageal reflux disease without esophagitis; M18.2 Bilateral post-traumatic osteoarthritis of first carpometacarpal joints; M54.5 Low back pain; R51.9 Headache, unspecified; R63.4 Abnormal weight loss; Z68.1 Body mass index [BMI] 19.9 or less, adult; Z63.4 Disappearance and death of family member; Z98.890 Other specified postprocedural states
CPT/HCPCS: 36415; 80053; 87389; 94640

== ENCOUNTER 2021-02-21 11:30 | Inpatient (IN) | payer OTHER ==
[2021-02-21] MEDS ORDERED: METHOCARBAMOL 500 MG TABLET PO PRN (11:42)
[2021-02-21] MEDS ORDERED: BISMUTH SUBSALICYLATE 262 MG/15 ML BTL PO PRN (11:42)
[2021-02-21] MEDS ORDERED: MENTHOL/PHENOL 1 EACH UD MM PRN (11:42)
[2021-02-21] MEDS ORDERED: ONDANSETRON *ODT* 4 MG TABLET SL PRN (11:42)
[2021-02-21] MEDS ORDERED: MAG HYDROX/AL HYDROX/SIMETH 30 ML UNIT-DOSE CUP PO PRN (11:42)
[2021-02-21] MEDS ORDERED: chlordiazePOXIDE HCL 25 MG CAPSULE PO PRN (11:42)
[2021-02-21] MEDS ORDERED: NICOTINE 10 MG CARTRIDGE (INHALER) IH PRN (11:42)
[2021-02-21] MEDS ORDERED: MAGNESIUM HYDROX 2400MG/30ML ORAL SUSPENSION 30 ML CUP PO PRN (11:42)
[2021-02-21] MEDS ORDERED: ACETAMINOPHEN 325 MG TABLET (FP) PO PRN (11:42)
[2021-02-21] MEDS ORDERED: MAGNESIUM CITRATE 300 ML BOTTLE PO PRN (11:42)
[2021-02-21] MEDS ORDERED: ALBUTEROL SO4 HFA INHALER IH PRN (11:47)
[2021-02-21 11:56] VITALS: BMI 16.0
[2021-02-21] MEDS ORDERED: PATIENT'S OWN MEDICATION (NON-FORMULARY) (Glecaprevir/Pibrentasvir [Mavyret 100-40 Mg Tabl PO SCH (12:00)
[2021-02-21] MEDS: IBUPROFEN 400 MG TABLET (FP) PO PRN (13:17)
[2021-02-21] MEDS: chlordiazePOXIDE HCL 25 MG CAPSULE PO SCH ×3 (14:40→22:29)
[2021-02-21] MEDS: CYPROHEPTADINE HCL 4 MG TABLET PO SCH ×2 (15:02→22:28)
[2021-02-21] MEDS: PRENATAL VITAMINS W/ FOLIC ACID TABLET (FP) PO SCH (15:06)
[2021-02-21] MEDS: hydrOXYzine PAMOATE 25 MG CAPSULE (FP) PO SCH ×3 (15:08→22:28)
[2021-02-21 15:44] LABS: CHLORIDE 97 mmol/L (98-107); SODIUM 138 mmol/L (136-145)
[2021-02-21 15:46] LABS: CALCIUM 8.8 mg/dL (8.5-10.1)
[2021-02-21 15:47] LABS: ALBUMIN 3.5 g/dl (3.4-5.0); CO2 33 mmol/L (21-32); GLUCOSE,RANDOM 75 mg/dL (74-106)
[2021-02-21 15:50] LABS: CREATININE 0.8 mg/dL (0.55-1.3); SGOT/AST 29 U/L (15-37); SGPT/ALT 18 U/L (13-61)
[2021-02-21 15:52] LABS: BILIRUBIN,TOTAL 0.5 mg/dL (0.2-1)
[2021-02-21 15:53] LABS: ALK PHOS 66 U/L (45-117)
[2021-02-21 15:56] LABS: ANION GAP 8 MMOL/L (8-16)
[2021-02-21 16:12] LABS: HEMATOCRIT 36.1 % (32.4-45.2); HEMOGLOBIN 12.5 GM/dL (10.7-15.3); MCHC 34.6 g/dl (32.0-36.0); MEAN CELL VOLUME 98.3 fl (80-96); MEAN PLT VOLUME 8.8 fl (7.5-11.1); PLATELET COUNT 182 10^3/uL (134-434); RBC 3.68 M/mm3 (3.60-5.2); WHITE BLOOD COUNT 3.6 K/mm3 (4.0-10.0)
[2021-02-21] MEDS ORDERED: POTASSIUM CHLORIDE TABS 20 MEQ TABLET.ER (FP) PO ONE (16:37)
[2021-02-21] MEDS: THIAMINE HCL 100 MG TABLET (FP) PO SCH (22:28)
[2021-02-21] MEDS: MELATONIN 5 MG TABLETS PO SCH (22:28)
[2021-02-21] MEDS: traZODone HCL 50 MG TABLET (FP) PO SCH (22:29)
[2021-02-22] MEDS: KETOCONAZOLE 2% CREAM - 60GM TUBE TP SCH ×3 (00:22→23:17)
[2021-02-22] MEDS: BUDESONIDE/FORMETEROL FUMARATE 160/4.5 mcg INHALER IH SCH ×3 (00:22→23:16)
[2021-02-22] MEDS: KETOROLAC TROMETHAMINE 0.5% EYE DROP 1 DROP DROPS OU SCH ×7 (00:42→23:16)
[2021-02-22] MEDS: CYPROHEPTADINE HCL 4 MG TABLET PO SCH ×3 (07:30→23:16)
[2021-02-22] MEDS: chlordiazePOXIDE HCL 25 MG CAPSULE PO SCH ×4 (07:30→23:21)
[2021-02-22] MEDS: hydrOXYzine PAMOATE 25 MG CAPSULE (FP) PO SCH ×5 (07:31→23:17)
[2021-02-22] MEDS: PRENATAL VITAMINS W/ FOLIC ACID TABLET (FP) PO SCH (10:33)
[2021-02-22] MEDS: HYDROCHLOROTHIAZIDE 12.5 MG CAPSULE (FP) PO SCH (10:33)
[2021-02-22] MEDS: NICOTINE 14 MG/24 HOURS TOPICAL PATCH TD SCH (10:33)
[2021-02-22] MEDS: MONTELUKAST NA 10 MG TABLET PO SCH (10:33)
[2021-02-22] MEDS: TIOTROPIUM BROMIDE 2.5 MCG (SPIRIVA) RESPIMAT INHALER IH SCH (10:58)
[2021-02-22] MEDS: CITALOPRAM HYDROBROMIDE 10 MG TABLET PO SCH (12:31)
[2021-02-22] MEDS ORDERED: POTASSIUM CHLORIDE TABS 20 MEQ TABLET.ER (FP) PO ONE (13:30)
[2021-02-22] MEDS: traZODone HCL 50 MG TABLET (FP) PO SCH (23:16)
[2021-02-22] MEDS: THIAMINE HCL 100 MG TABLET (FP) PO SCH (23:17)
[2021-02-22] MEDS: MELATONIN 5 MG TABLETS PO SCH (23:18)
[2021-02-22] MEDS: ACETAMINOPHEN 325 MG TABLET (FP) PO PRN (23:20)
[2021-02-23] MEDS: chlordiazePOXIDE HCL 25 MG CAPSULE PO SCH ×4 (06:37→22:13)
[2021-02-23] MEDS: CYPROHEPTADINE HCL 4 MG TABLET PO SCH ×3 (06:37→22:13)
[2021-02-23] MEDS: hydrOXYzine PAMOATE 25 MG CAPSULE (FP) PO SCH ×5 (06:41→22:15)
[2021-02-23] MEDS: MONTELUKAST NA 10 MG TABLET PO SCH (11:43)
[2021-02-23] MEDS: KETOCONAZOLE 2% CREAM - 60GM TUBE TP SCH (11:43)
[2021-02-23] MEDS: HYDROCHLOROTHIAZIDE 12.5 MG CAPSULE (FP) PO SCH (11:43)
[2021-02-23] MEDS: CITALOPRAM HYDROBROMIDE 10 MG TABLET PO SCH (11:43)
[2021-02-23] MEDS: PRENATAL VITAMINS W/ FOLIC ACID TABLET (FP) PO SCH (11:44)
[2021-02-23] MEDS: KETOROLAC TROMETHAMINE 0.5% EYE DROP 1 DROP DROPS OU SCH ×3 (11:44→18:44)
[2021-02-23] MEDS: BUDESONIDE/FORMETEROL FUMARATE 160/4.5 mcg INHALER IH SCH ×2 (11:45→22:12)
[2021-02-23] MEDS: TIOTROPIUM BROMIDE 2.5 MCG (SPIRIVA) RESPIMAT INHALER IH SCH (11:45)
[2021-02-23] MEDS: NICOTINE 14 MG/24 HOURS TOPICAL PATCH TD SCH (11:45)
[2021-02-23] MEDS: IBUPROFEN 400 MG TABLET (FP) PO PRN (18:45)
[2021-02-23] MEDS: MELATONIN 5 MG TABLETS PO SCH (22:12)
[2021-02-23] MEDS: traZODone HCL 50 MG TABLET (FP) PO SCH (22:13)
[2021-02-23] MEDS: THIAMINE HCL 100 MG TABLET (FP) PO SCH (22:13)
[2021-02-23] MEDS: ACETAMINOPHEN 325 MG TABLET (FP) PO PRN (22:14)
[2021-02-24] MEDS ORDERED: chlordiazePOXIDE HCL 10 MG CAPSULE PO PRN
[2021-02-24] MEDS: KETOROLAC TROMETHAMINE 0.5% EYE DROP 1 DROP DROPS OU SCH ×5 (00:15→23:19)
[2021-02-24] MEDS: KETOCONAZOLE 2% CREAM - 60GM TUBE TP SCH ×3 (00:20→23:19)
[2021-02-24] MEDS: CYPROHEPTADINE HCL 4 MG TABLET PO SCH ×3 (05:38→23:20)
[2021-02-24] MEDS: chlordiazePOXIDE HCL 10 MG CAPSULE PO SCH ×4 (05:38→23:19)
[2021-02-24] MEDS: hydrOXYzine PAMOATE 25 MG CAPSULE (FP) PO SCH ×5 (05:39→23:20)
[2021-02-24] MEDS: HYDROCHLOROTHIAZIDE 12.5 MG CAPSULE (FP) PO SCH (10:56)
[2021-02-24] MEDS: CITALOPRAM HYDROBROMIDE 10 MG TABLET PO SCH (10:56)
[2021-02-24] MEDS: MONTELUKAST NA 10 MG TABLET PO SCH (10:57)
[2021-02-24] MEDS: PRENATAL VITAMINS W/ FOLIC ACID TABLET (FP) PO SCH (10:57)
[2021-02-24] MEDS: NICOTINE 14 MG/24 HOURS TOPICAL PATCH TD SCH (10:57)
[2021-02-24] MEDS: TIOTROPIUM BROMIDE 2.5 MCG (SPIRIVA) RESPIMAT INHALER IH SCH (10:58)
[2021-02-24] MEDS: BUDESONIDE/FORMETEROL FUMARATE 160/4.5 mcg INHALER IH SCH ×2 (10:58→23:18)
[2021-02-24] MEDS: THIAMINE HCL 100 MG TABLET (FP) PO SCH (23:18)
[2021-02-24] MEDS: MELATONIN 5 MG TABLETS PO SCH (23:18)
[2021-02-24] MEDS: traZODone HCL 50 MG TABLET (FP) PO SCH (23:19)
[2021-02-25] MEDS: hydrOXYzine PAMOATE 25 MG CAPSULE (FP) PO SCH ×6 (06:39→21:57)
[2021-02-25] MEDS: CYPROHEPTADINE HCL 4 MG TABLET PO SCH ×3 (06:39→21:57)
[2021-02-25] MEDS: chlordiazePOXIDE HCL 10 MG CAPSULE PO SCH ×2 (06:40→17:21)
[2021-02-25] MEDS: NICOTINE 14 MG/24 HOURS TOPICAL PATCH TD SCH (10:10)
[2021-02-25] MEDS: HYDROCHLOROTHIAZIDE 12.5 MG CAPSULE (FP) PO SCH (10:10)
[2021-02-25] MEDS: BUDESONIDE/FORMETEROL FUMARATE 160/4.5 mcg INHALER IH SCH ×2 (10:10→21:59)
[2021-02-25] MEDS: TIOTROPIUM BROMIDE 2.5 MCG (SPIRIVA) RESPIMAT INHALER IH SCH (10:10)
[2021-02-25] MEDS: KETOROLAC TROMETHAMINE 0.5% EYE DROP 1 DROP DROPS OU SCH ×5 (10:10→22:00)
[2021-02-25] MEDS: PRENATAL VITAMINS W/ FOLIC ACID TABLET (FP) PO SCH (10:11)
[2021-02-25] MEDS: MONTELUKAST NA 10 MG TABLET PO SCH (10:11)
[2021-02-25] MEDS: CITALOPRAM HYDROBROMIDE 10 MG TABLET PO SCH (10:11)
[2021-02-25] MEDS: KETOCONAZOLE 2% CREAM - 60GM TUBE TP SCH ×2 (10:14→21:59)
[2021-02-25] MEDS: traZODone HCL 50 MG TABLET (FP) PO SCH (21:57)
[2021-02-25] MEDS: THIAMINE HCL 100 MG TABLET (FP) PO SCH (21:58)
[2021-02-25] MEDS: MELATONIN 5 MG TABLETS PO SCH (21:58)
[2021-02-26] MEDS ORDERED: chlordiazePOXIDE HCL 10 MG CAPSULE PO ONE (05:00)
[2021-02-26] MEDS: hydrOXYzine PAMOATE 25 MG CAPSULE (FP) PO SCH ×2 (05:16→10:51)
[2021-02-26] MEDS: CYPROHEPTADINE HCL 4 MG TABLET PO SCH (05:16)
[2021-02-26 07:16] VITALS: TEMP 97.1
[2021-02-26 09:42] VITALS: BP 98/63; PULSE 65
[2021-02-26] MEDS: ACETAMINOPHEN 325 MG TABLET (FP) PO PRN (10:23)
[2021-02-26] MEDS: NICOTINE 14 MG/24 HOURS TOPICAL PATCH TD SCH (10:25)
[2021-02-26] MEDS: BUDESONIDE/FORMETEROL FUMARATE 160/4.5 mcg INHALER IH SCH (10:49)
[2021-02-26] MEDS: KETOCONAZOLE 2% CREAM - 60GM TUBE TP SCH (10:49)
[2021-02-26] MEDS: KETOROLAC TROMETHAMINE 0.5% EYE DROP 1 DROP DROPS OU SCH (10:49)
[2021-02-26] MEDS: CITALOPRAM HYDROBROMIDE 10 MG TABLET PO SCH (10:50)
[2021-02-26] MEDS: PRENATAL VITAMINS W/ FOLIC ACID TABLET (FP) PO SCH (10:50)
[2021-02-26] MEDS: MONTELUKAST NA 10 MG TABLET PO SCH (10:50)
[2021-02-26] MEDS: HYDROCHLOROTHIAZIDE 12.5 MG CAPSULE (FP) PO SCH (10:51)
[2021-02-26] MEDS: TIOTROPIUM BROMIDE 2.5 MCG (SPIRIVA) RESPIMAT INHALER IH SCH (10:51)
== END 2021-02-26 11:08 | disposition home or self-care (01) | DRG 774 ==
LOC: YASAS 11:30 → Y3N 13:32
PROVIDERS: ADMIT Allergy & Immunology; ATTEND Allergy & Immunology
PROC: HZ2ZZZZ Detoxification Services for Substance Abuse Treatment (ICD-10-PCS; principal; 2021-02-21)
DX: F10.230 Alcohol dependence with withdrawal, uncomplicated (principal); F14.20 Cocaine dependence, uncomplicated; F12.20 Cannabis dependence, uncomplicated; F17.210 Nicotine dependence, cigarettes, uncomplicated; F19.282 Other psychoactive substance dependence with psychoactive substance-induced sleep disorder; F19.24 Other psychoactive substance dependence with psychoactive substance-induced mood disorder; F32.A Depression, unspecified; G47.00 Insomnia, unspecified; I10 Essential (primary) hypertension; J45.909 Unspecified asthma, uncomplicated; K21.9 Gastro-esophageal reflux disease without esophagitis; B18.2 Chronic viral hepatitis C; Z56.0 Unemployment, unspecified; Z91.010 Allergy to peanuts
CPT/HCPCS: 36415; 80053; 84132; 85027; 86593; 86780; C9803-CS; Q0162; U0003; U0005